=== PATIENT | female | born 1930 | race African-American/Black ===

== ENCOUNTER 2017-08-22 13:35 | Observation (INO) | payer MEDICARE, MEDICAID ==
[2017-08-22 14:59] LABS: ABS Basophils 0 10^3/ul (0-0.2); ABS Eosinophils 0.1 10^3/ul (0-0.6); ABS Lymphocytes 1.7 10^3/ul (1.0-4.8); ABS Monocytes 0.7 10^3/ul (0-0.8); ABS Neutrophils 2.3 10^3/ul (1.5-7.7); ABS Nucleated RBC 0 10^3/ul; Eosinophil % 2.9 % (0-6); Hematocrit 40 % (35-47); Hemoglobin 13.2 g/dl (12.0-16.0); Lymphocyte % 35.3 % (25-47); Mean Corpuscular HGB Conc 33 g/dl (31-36); Mean Corpuscular Hemoglobin 31 pg (27-31); Mean Corpuscular Volume 94 fL (80-97); Mean Platelet Volume 8.2 um3 (7.4-10.4); Nucleated Red Blood Cells % 0; Platelet Count 293 10^3/ul (150-450); Red Blood Count 4.21 10^6/ul (4.0-5.4); Red Cell Distribution Width 15 % (10.5-15); White Blood Count 4.8 10^3/ul (3.5-10.8)
[2017-08-22 15:05] LABS: INR 0.96 (0.77-1.02)
[2017-08-22 15:22] LABS: EGFR Non-African American 34.6 (>60)
--- NOTE | 2017-08-22 15:37 | RAD ---
INDICATION: Altered mental status COMPARISON: CT brain November 24, 2015 TECHNIQUE: Noncontrast axial source images were acquired from the skull base to the vertex. FINDINGS: Ventricles/sulci: The ventricles and cisterns are normal in size and configuration for age. Brain parenchyma: There is no focal parenchymal finding, evidence of intracranial mass, or intracranial mass effect. Intracranial hemorrhage:None. Extra-axial spaces: There are no abnormal extra axial fluid collections or evidence of extra-axial mass. Calvarium: There is no calvarial fracture or other calvarial abnormality. Scalp: There is no evidence of scalp or extracalvarial soft tissue abnormality. Paranasal sinuses/mastoid: The left maxillary antrum is incompletely evaluated. There is soft tissue density with ossification or calcification within the maxillary sinus. There is reactive change about the muñoz of the maxillary antra with sclerosis. The findings likely related to chronic sinusitis but complete evaluation with a CT of the paranasal sinuses is recommended. This could be performed as an outpatient. Other: None. IMPRESSION: NO ACUTE INTRACRANIAL FINDINGS. 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
[2017-08-22] MEDS ORDERED: Ondansetron INJ* 2 MG/ML VIAL IV PRN (18:10)
[2017-08-22] MEDS ORDERED: Acetaminophen TAB* 325 MG PO PRN (18:10)
[2017-08-22] MEDS ORDERED: NS 0.9% 1000 ML* 1,000 ML IV SCH (18:15)
[2017-08-22 18:25] LABS: Urine Appearance Cloudy; Urine Blood Negative (Negative); Urine Color Yellow; Urine Ketones Negative (Negative); Urine Protein 1+(30 mg/dL) (Negative); Urine Specific Gravity 1.012 (1.010-1.030); Urine Urobilinogen Negative (Negative)
--- NOTE | 2017-08-22 19:10 | RAD ---
INDICATION: Evaluate for infiltrate. COMPARISON: Comparison is made with a prior study from July 16, 2014. TECHNIQUE: A portable view of the chest was obtained. FINDINGS: Cardiac and mediastinal contours appear to be within normal limits. The lungs are clear. No pleural effusion is seen. IMPRESSION: NO EVIDENCE FOR ACUTE DISEASE.
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
[2017-08-22] MEDS: Heparin VIAL(*) 5000 UNITS/ML VIAL (FIVE THOUSAND) SUBCUT SCH (21:03)
[2017-08-22] MEDS: Dorzolamide 2% OPTH (NF) 10 ML BTL BOTH EYES SCH (21:03)
--- NOTE | 2017-08-22 21:04 | ED ---
Kenneth Almeida Natalie, scribed for Duarte Jacques MD on 08/22/17 at 1450 . Neurological HPI - HPI Summary HPI Summary: The pt is an 87 y/o F presenting to the ED per EMS from retirement c/o seizure -like activity at lunchtime today. When EMS arrived, the pt was unresponsive. The pt rates the pain 0/10 in severity. - History of Current Complaint Chief Complaint: EDSeizure Stated Complaint: UNRESPONSIVE Time Seen by Provider: 08/22/17 13:47 Hx Obtained From: Patient, EMS, Other: - pt was unresponsive when EMS arrived Onset/Duration: Sudden Onset Onset Severity: Moderate Current Severity: Moderate Seizure Severity: Moderate Pain Intensity: 0 Pain Scale Used: 0-10 Numeric Character: Other: - unresponsive - Allergy/Home Medications Allergies/Adverse Reactions: Allergies Allergy/AdvReac Type Severity Reaction Status Date / Time No Known Allergies Allergy Verified 11/30/15 17:39 Home Medications: Home Medications Aspirin EC TAB* [Ecotrin EC Low Dose 81 MG*] 81 mg PO QAM 08/22/17 [History Confirmed 08/22/17] Calcium Carbonate [[id number]] 500 mg PO QAM 08/22/17 [History Confirmed 08/22] Dorzolamide 2% OPTH (NF) [Trusopt 2% OPTH (NF)] 1 drop BOTH EYES BID 08/22/17 [ History Confirmed 08/22/17] Famotidine TAB 40 MG(NF) [Pepcid TAB 40 MG(NF)] 40 mg PO DAILY 08/22/17 [ History Confirmed 08/22/17] Latanoprost 0.005%* [Xalatan 0.005%*] 1 drop BOTH EYES QPM 08/22/17 [History Confirmed 08/22/17] Memantine XR CAP* [Namenda XR CAP*] 28 mg PO QAM 08/22/17 [History Confirmed ] Mirtazapine TAB* [Remeron TAB*] 30 mg PO QPM 08/22/17 [History Confirmed ] Multivitamins/Minerals TAB* [Theragran/minerals TAB*] 1 tab PO QAM 08/22/17 [ History Confirmed 08/22/17] Nortriptyline CAP* [Pamelor CAP*] 25 mg PO QPM 08/22/17 [History Confirmed 08/22] QUEtiapine TAB* [SEROquel TAB*] 25 mg PO QPM 08/22/17 [History Confirmed ] Timolol 0.5% OPTH.[place]* [Timoptic 0.5% Opth*] 1 drop BOTH EYES BID 08/22/17 [ History Confirmed 08/22/17] Verapamil SR TAB* [Calan Sr TAB*] 240 mg PO QAM 08/22/17 [History Confirmed ] PMH/Surg Hx/FS Hx/Imm Hx Cardiovascular History: Reports: Hx Hypertension Opthamlomology History: Denies: Hx Legally Blind Infectious Disease History: No Infectious Disease History: Denies: History Other Infectious Disease, Traveled Outside the [place] in Last 30 Days - Family History Known Family History: Positive: Hypertension Negative: Diabetes - Social History Alcohol Use: None Substance Use Type: Reports: None Smoking Status (MU): Never Smoked Tobacco Review of Systems Negative: Fever Neurological: Other - unresponsive All Other Systems Reviewed And Are Negative: Yes Physical Exam - Summary Physical Exam Summary: Appearance: The patient is slumped over to her right, resisting opening of eyes , with a general agitation to pain. Skin: The skin is warm and dry and skin color reflects adequate perfusion. HEENT: The head is normocephalic and atraumatic. The pupils are equal and reactive. The conjunctivae are clear and without drainage. Nares are patent and without drainage. Mouth reveals moist mucous membranes and the throat is without erythema and exudate. The external ears are intact. The ear canals are patent and without drainage. The tympanic membranes are intact. Neck: the neck is supple with full range of motion and non-tender. There are no carotid bruits. There is no neck vein distension. Respiratory: Chest is non-tender. Lungs are clear to auscultation and breath sounds are symmetrical and equal. Cardiovascular: Heart is regular rate and rhythm. There is no murmur or rub auscultated. There is no peripheral edema and pulses are symmetrical and equal. Abdomen: The abdomen is soft and non-tender. There are normal bowel sounds heard in all four quadrants and there is no organomegaly palpated. Musculoskeletal: There is no back tenderness noted. Extremities are non-tender with full range of motion. There is good capillary refill. There is no peripheral edema or calf tenderness elicited. Neurological: Patient is alert and oriented to person, place, and time. The patient has symmetrical motor strength in all four extremities. Cranial nerves are grossly intact. Deep tendon reflexes are symmetrical and equal in all four extremities. Psychiatric: The patient has an appropriate affect and does not exhibit any anxiety or depression. Triage Information Reviewed: Yes Vital Signs On Initial Exam: Initial Vitals Temp Pulse Resp BP Pulse Ox 97.0 F 88 16 119/86 95 08/22/17 14:21 08/22/17 14:21 08/22/17 14:21 08/22/17 14:21 08/22/17 14:21 Vital Signs Reviewed: Yes Diagnostics - Vital Signs Vital Signs Temp Pulse Resp BP Pulse Ox 08/22/17 14:21 97.0 F 88 16 119/86 95 - Laboratory Lab Results: Lab Results 08/22/17 08/22/17 08/22/17 Range/Units 14:30 14:30 14:30 WBC 4.8 (3.5-10.8) 10^3/ul RBC 4.21 (4.0-5.4) 10^6/ul Hgb 13.2 (12.0-16.0) g/dl Hct 40 (35-47) % MCV 94 (80-97) fL MCH 31 (27-31) pg MCHC 33 (31-36) g/dl RDW 15 (10.5-15) % Plt Count 293 (150-450) 10^3/ul MPV 8.2 (7.4-10.4) um3 Neut % (Auto) 46.8 (38-83) % Lymph % (Auto) 35.3 (25-47) % [place] % (Auto) 14.0 H (0-7) % Eos % (Auto) 2.9 (0-6) % Baso % (Auto) 1.0 (0-2) % Absolute Neuts (auto) 2.3 (1.5-7.7) 10^3/ul Absolute Lymphs (auto) 1.7 (1.0-4.8) 10^3/ul Absolute Monos (auto) 0.7 (0-0.8) 10^3/ul Absolute Eos (auto) 0.1 (0-0.6) 10^3/ul Absolute Basos (auto) 0 (0-0.2) 10^3/ul Absolute Nucleated RBC 0 10^3/ul Nucleated RBC % 0 INR (Anticoag Therapy) 0.96 (0.77-1.02) Sodium 140 (139-145) mmol/L Potassium TNP Chloride 103 (101-111) mmol/L Carbon Dioxide 29 (22-32) mmol/L Anion Gap 8 (2-11) mmol/L BUN 16 (6-24) mg/dL Creatinine 1.43 H (0.51-0.95) mg/dL Est GFR ( Amer) 44.5 (>60) Est GFR (Non-Af Amer) 34.6 (>60) BUN/Creatinine Ratio 11.2 (8-20) Glucose 109 H (70-100) mg/dL Lactic Acid (0.5-2.0) mmol/L Calcium 10.2 (8.6-10.3) mg/dL Total Bilirubin 0.30 (0.2-1.0) mg/dL AST TNP ALT 29 (7-52) U/L Alkaline Phosphatase 82 (34-104) U/L Troponin I 0.01 (<0.04) ng/mL Total Protein 7.7 (6.4-8.9) g/dL Albumin 3.9 (3.2-5.2) g/dL Globulin 3.8 (2-4) g/dL Albumin/Globulin Ratio 1.0 (1-3) TSH 3.31 (0.34-5.60) mcIU/mL 08/22/17 08/22/17 Range/Units 14:30 15:40 WBC (3.5-10.8) 10^3/ul RBC (4.0-5.4) 10^6/ul Hgb (12.0-16.0) g/dl Hct (35-47) % MCV (80-97) fL MCH (27-31) pg MCHC (31-36) g/dl RDW (10.5-15) % Plt Count (150-450) 10^3/ul MPV (7.4-10.4) um3 Neut % (Auto) (38-83) % Lymph % (Auto) (25-47) % [place] % (Auto) (0-7) % Eos % (Auto) (0-6) % Baso % (Auto) (0-2) % Absolute Neuts (auto) (1.5-7.7) 10^3/ul Absolute Lymphs (auto) (1.0-4.8) 10^3/ul Absolute Monos (auto) (0-0.8) 10^3/ul Absolute Eos (auto) (0-0.6) 10^3/ul Absolute Basos (auto) (0-0.2) 10^3/ul Absolute Nucleated RBC 10^3/ul Nucleated RBC % INR (Anticoag Therapy) (0.77-1.02) Sodium (139-145) mmol/L Potassium 3.9 Chloride (101-111) mmol/L Carbon Dioxide (22-32) mmol/L Anion Gap (2-11) mmol/L BUN (6-24) mg/dL Creatinine (0.51-0.95) mg/dL Est GFR ( Amer) (>60) Est GFR (Non-Af Amer) (>60) BUN/Creatinine Ratio (8-20) Glucose (70-100) mg/dL Lactic Acid 1.8 (0.5-2.0) mmol/L Calcium (8.6-10.3) mg/dL Total Bilirubin (0.2-1.0) mg/dL AST 25 ALT (7-52) U/L Alkaline Phosphatase (34-104) U/L Troponin I (<0.04) ng/mL Total Protein (6.4-8.9) g/dL Albumin (3.2-5.2) g/dL Globulin (2-4) g/dL Albumin/Globulin Ratio (1-3) TSH (0.34-5.60) mcIU/mL Result Diagrams: 08/22/17 14:30 08/22/17 15:40 Lab Statement: Any lab studies that have been ordered have been reviewed, and results considered in the medical decision making process. - Radiology CXR Xray Interpretation: No Acute Changes - No evidence for acute disease. ED physician has reviewed this report. - CT Brain CT CT Interpretation: No Acute Changes - No acute intracranial findings. Suspect chronic left maxillary antral sinusitis. ED physician has reviewed this report. CT Interpretation Completed By: Radiologist - EKG 13:59 Cardiac Rate: NL EKG Rhythm: Sinus Rhythm - 92 BPM Course/Dx - Course Course Of Treatment: Ms. Sánchez has recently been moved to the [place] from [place] by family. She was apparently eating lunch today and had a seizure. I couldn't get a good description from an eyewitness. EMS found her unresponsive and she was poorly responsive on arrival here. She gradually improved here and the family felt she was almost back to normal. At baseline she has severe dementia. Her W/U was negative. I spoke with the family about how aggressive they wanted to be and they wanted to have her admitted and W/U'd. - Diagnoses Provider Diagnoses: Seizure Discharge - Sign-Out/Discharge Documenting (check all that apply): Discharge - Discharge Plan Condition: Stable Disposition: ADMITTED TO [facility] - Billing Disposition and Condition Condition: STABLE Disposition: [facility]P-[facility] [place] The documentation as recorded by the Kenneth acosta Natalie accurately reflects the service I personally performed and the decisions made by me, Duarte Jacques MD.
[2017-08-22] MEDS: Timolol 0.5% OPTH.SOL* BTL BOTH EYES SCH (21:43)
[2017-08-23 05:27] LABS: ABS Basophils 0.1 10^3/ul (0-0.2); ABS Eosinophils 0.1 10^3/ul (0-0.6); ABS Lymphocytes 1.8 10^3/ul (1.0-4.8); ABS Monocytes 0.6 10^3/ul (0-0.8); ABS Neutrophils 2.1 10^3/ul (1.5-7.7); ABS Nucleated RBC 0 10^3/ul; Eosinophil % 2.9 % (0-6); Hematocrit 39 % (35-47); Hemoglobin 12.8 g/dl (12.0-16.0); Lymphocyte % 37.8 % (25-47); Mean Corpuscular HGB Conc 33 g/dl (31-36); Mean Corpuscular Hemoglobin 31 pg (27-31); Mean Corpuscular Volume 95 fL (80-97); Mean Platelet Volume 7.9 um3 (7.4-10.4); Nucleated Red Blood Cells % 0.1; Platelet Count 253 10^3/ul (150-450); Red Blood Count 4.11 10^6/ul (4.0-5.4); Red Cell Distribution Width 15 % (10.5-15); White Blood Count 4.8 10^3/ul (3.5-10.8)
[2017-08-23] MEDS: Heparin VIAL(*) 5000 UNITS/ML VIAL (FIVE THOUSAND) SUBCUT SCH (05:40)
[2017-08-23 05:46] LABS: EGFR Non-African American 43.2 (>60)
[2017-08-23] MEDS ORDERED: Famotidine TAB* 20 MG PO SCH (09:00)
[2017-08-23] MEDS ORDERED: Aspirin EC TAB* 81 MG TAB.EC PO SCH (09:00)
[2017-08-23] MEDS ORDERED: Verapamil SR TAB* 240 MG PO SCH (09:00)
[2017-08-23] MEDS ORDERED: Memantine XR CAP* 28 MG CAP.XR PO SCH (09:00)
[2017-08-23] MEDS ORDERED: Calcium Carbonate CHEW TAB* 500 MG (TUMS) PO SCH (09:00)
[2017-08-23] MEDS ORDERED: Multivitamins/Minerals TAB PO SCH (09:00)
[2017-08-23] MEDS: Timolol 0.5% OPTH.SOL* BTL BOTH EYES SCH (09:34)
[2017-08-23] MEDS: Dorzolamide 2% OPTH (NF) 10 ML BTL BOTH EYES SCH (09:36)
--- NOTE | 2017-08-23 10:14 | DCNOTE ---
Subjective Date of Service: 08/23/17 Interval History: Patient not able to make her needs known. DIL at bedside states patient is back to her baseline. Objective Active Medications: Acetaminophen (Tylenol Tab*) 650 mg PO Q4H PRN PRN Reason: FEVER/PAIN Aspirin (Aspirin Ec Tab*) 81 mg PO QAM [facility] Last Admin: 08/23/17 09:32 Dose: 81 mg Atorvastatin Calcium (Lipitor*) 5 mg PO QPM [facility] PRN Reason: Protocol Calcium Carbonate (Tums*) 500 mg PO QAM [facility] Last Admin: 08/23/17 09:30 Dose: 500 mg Dorzolamide HCl (Trusopt 2% Opth (Nf)) 1 drop BOTH EYES BID [facility] PRN Reason: Protocol Last Admin: 08/23/17 09:36 Dose: Not Given Famotidine (Pepcid Tab*) 40 mg PO DAILY [facility] Last Admin: 08/23/17 09:31 Dose: 40 mg Heparin Sodium (Porcine) (Heparin Vial(*)) 5,000 units SUBCUT Q8HR [facility] Last Admin: 08/23/17 05:40 Dose: 5,000 units Latanoprost (Xalatan 0.005%*) 1 drop BOTH EYES QPM [facility] Memantine (Namenda Xr Cap*) 28 mg PO QAM [facility] Last Admin: 08/23/17 09:33 Dose: 28 mg Mirtazapine (Remeron Tab*) 15 mg PO QPM [facility] Multivitamins/Minerals (Theragran/Minerals Tab*) 1 tab PO QAM [facility] Last Admin: 08/23/17 09:32 Dose: 1 tab Ondansetron HCl (Zofran Inj*) 4 mg IV Q4H PRN PRN Reason: NAUSEA/VOMITING Quetiapine Fumarate (Seroquel Tab*) 25 mg PO QPM [facility] Timolol Maleate (Timoptic 0.5% Opth*) 1 drop BOTH EYES BID [facility] Last Admin: 08/23/17 09:34 Dose: 1 drop Vital Signs - 8 hr 08/23/17 08/23/17 03:39 07:22 Temperature 97.3 F Pulse Rate 84 Respiratory 16 18 Rate Blood Pressure 129/63 (mmHg) O2 Sat by Pulse 100 Oximetry Oxygen Devices in Use Now: None Appearance: Alert, partly up in bed. She ignores me and her dil. Motor restlessness. Neutral affect. Eyes: No Scleral Icterus Respiratory: Symmetrical Chest Expansion and Respiratory Effort, Clear to Auscultation, Clear to Percussion Cardiovascular: NL Sounds; No Murmurs; No JVD, RRR, No Edema, - Extremities: No Edema, No Clubbing, Cyanosis, - Skin: No Rash or Ulcers, No Nodules or Sclerosis, - Neurological: NL Sensation - Non-verbal, poor attention span, no sign of comrehension. No tremor. Result Diagrams: 08/23/17 05:12 08/23/17 05:12 Additional Lab and Data: Lab Results 08/22/17 08/22/17 08/22/17 Range/Units 14:30 14:30 14:30 WBC 4.8 (3.5-10.8) 10^3/ul RBC 4.21 (4.0-5.4) 10^6/ul Hgb 13.2 (12.0-16.0) g/dl Hct 40 (35-47) % MCV 94 (80-97) fL MCH 31 (27-31) pg MCHC 33 (31-36) g/dl RDW 15 (10.5-15) % Plt Count 293 (150-450) 10^3/ul MPV 8.2 (7.4-10.4) um3 Neut % (Auto) 46.8 (38-83) % Lymph % (Auto) 35.3 (25-47) % [place] % (Auto) 14.0 H (0-7) % Eos % (Auto) 2.9 (0-6) % Baso % (Auto) 1.0 (0-2) % Absolute Neuts (auto) 2.3 (1.5-7.7) 10^3/ul Absolute Lymphs (auto) 1.7 (1.0-4.8) 10^3/ul Absolute Monos (auto) 0.7 (0-0.8) 10^3/ul Absolute Eos (auto) 0.1 (0-0.6) 10^3/ul Absolute Basos (auto) 0 (0-0.2) 10^3/ul Absolute Nucleated RBC 0 10^3/ul Nucleated RBC % 0 INR (Anticoag Therapy) 0.96 (0.77-1.02) Sodium 140 (139-145) mmol/L Potassium TNP Chloride 103 (101-111) mmol/L Carbon Dioxide 29 (22-32) mmol/L Anion Gap 8 (2-11) mmol/L BUN 16 (6-24) mg/dL Creatinine 1.43 H (0.51-0.95) mg/dL Est GFR ( Amer) 44.5 (>60) Est GFR (Non-Af Amer) 34.6 (>60) BUN/Creatinine Ratio 11.2 (8-20) Glucose 109 H (70-100) mg/dL Lactic Acid (0.5-2.0) mmol/L Calcium 10.2 (8.6-10.3) mg/dL Total Bilirubin 0.30 (0.2-1.0) mg/dL AST TNP ALT 29 (7-52) U/L Alkaline Phosphatase 82 (34-104) U/L Troponin I 0.01 (<0.04) ng/mL Total Protein 7.7 (6.4-8.9) g/dL Albumin 3.9 (3.2-5.2) g/dL Globulin 3.8 (2-4) g/dL Albumin/Globulin Ratio 1.0 (1-3) TSH 3.31 (0.34-5.60) mcIU/mL 08/22/17 08/22/17 Range/Units 14:30 15:40 WBC (3.5-10.8) 10^3/ul RBC (4.0-5.4) 10^6/ul Hgb (12.0-16.0) g/dl Hct (35-47) % MCV (80-97) fL MCH (27-31) pg MCHC (31-36) g/dl RDW (10.5-15) % Plt Count (150-450) 10^3/ul MPV (7.4-10.4) um3 Neut % (Auto) (38-83) % Lymph % (Auto) (25-47) % [place] % (Auto) (0-7) % Eos % (Auto) (0-6) % Baso % (Auto) (0-2) % Absolute Neuts (auto) (1.5-7.7) 10^3/ul Absolute Lymphs (auto) (1.0-4.8) 10^3/ul Absolute Monos (auto) (0-0.8) 10^3/ul Absolute Eos (auto) (0-0.6) 10^3/ul Absolute Basos (auto) (0-0.2) 10^3/ul Absolute Nucleated RBC 10^3/ul Nucleated RBC % INR (Anticoag Therapy) (0.77-1.02) Sodium (139-145) mmol/L Potassium 3.9 Chloride (101-111) mmol/L Carbon Dioxide (22-32) mmol/L Anion Gap (2-11) mmol/L BUN (6-24) mg/dL Creatinine (0.51-0.95) mg/dL Est GFR ( Amer) (>60) Est GFR (Non-Af Amer) (>60) BUN/Creatinine Ratio (8-20) Glucose (70-100) mg/dL Lactic Acid 1.8 (0.5-2.0) mmol/L Calcium (8.6-10.3) mg/dL Total Bilirubin (0.2-1.0) mg/dL AST 25 ALT (7-52) U/L Alkaline Phosphatase (34-104) U/L Troponin I (<0.04) ng/mL Total Protein (6.4-8.9) g/dL Albumin (3.2-5.2) g/dL Globulin (2-4) g/dL Albumin/Globulin Ratio (1-3) TSH (0.34-5.60) mcIU/mL Microbiology and Other Data: Microbiology 08/22/17 20:20 Nasal Screen MRSA (PCR)(SHAYY) - Final Nasal Mrsa Not Detected Assess/Plan/Problems-Billing Assessment: - Patient Problems (1) Spell of altered consciousness Current Visit: Yes Status: Acute Code(s): R40.4 - TRANSIENT ALTERATION OF AWARENESS SNOMED Code(s): 6590416 Comment: Shaking episode with LOC at SNF, could be seizure. If EEG not too abnormal would hold off on AED. If seizure focus seen, may be helpful to start AED. I discussed this with the dil. I am reducing mirtazapine and quetiapine doses, stopping nortriptyline. (2) Dementia Current Visit: Yes Status: Acute Code(s): F03.90 - UNSPECIFIED DEMENTIA WITHOUT BEHAVIORAL DISTURBANCE SNOMED Code(s): 59206216 Comment: Advanced dementia. Continue memantine XR. (3) HTN (hypertension) Current Visit: Yes Status: Acute Code(s): I10 - ESSENTIAL (PRIMARY) HYPERTENSION SNOMED Code(s): 91198292 Comment: Hold verapamil. BP 121/44 08/23 without it.
[2017-08-23 12:44] VITALS: BP 122/84
--- NOTE | 2017-08-23 13:50 | TRS ---
CC: Dr. Sandoval * DATE OF ADMISSION: 08/22/2017. DATE OF TRANSFER: 08/23/2017. HISTORY OF PRESENT ILLNESS: This 87-year-old woman presented with possible seizure. Her [id number] had visited that morning and had left. The patient was doing was doing as well as ever, at her baseline. Sometime later she was called back. The patient loss consciousness and had some shaking. When the [id number] arrived, the patient was on the floor not moving. The daughter-in- law thinks the patient was unresponsive for a few hours. She had never had a similar episode before. On the day of discharge, the patient was back at her baseline. The patient herself has advanced dementia and cannot give any history at all. She is essentially nonverbal. The patient was evaluated her with a CT scan of the brain, a chest x-ray, and routine lab tests. She had an EEG on the day of discharge. The report of this is not available at the time of this dictation, but should be available later this afternoon. I am cutting down her Mirtazapine and Quetiapine doses and stopping her Nortriptyline, which was already at a very low dose. If the EEG shows seizure- like foci, I will consult with the neurologist about possibly starting an antiepileptic drug. If there is no indication suspicious for seizures on the EEG after a single episode, it may be best to simply observe the patient. FINAL DIAGNOSES: 1. Possible seizure. 2. Dementia. 3. Hypertension. DISCHARGE MEDICATIONS: 1. Acetaminophen 650 mg every 4 hours prn. 2. Mirtazapine 15 mg at bedtime. 3. Quetiapine 12.5 mg at bedtime. 4. Pravastatin 20 mg at bedtime. 5. Timolol 0.5% both eyes b.i.d. 6. Famotidine 40 mg daily. 7. Calcium Carbonate 500 mg daily. 8. Latanoprost 0.005% one drop both eyes every evening. 9. Dorzolamide one drop both eyes 2% b.i.d. 10. Aspirin 81 mg daily. 11. Verapamil SR 240 mg daily. 12. Multivitamin with minerals one tab daily. 13. Memantine XR 28 mg daily. [id number]/[facility] #: [id number] [facility]
--- NOTE | 2017-08-23 15:39 | EEG ---
ELECTROENCEPHALOGRAPHY: DATE OF PROCEDURE: 08/1917 PATIENT OF: Dr. Abdul. HISTORY: This is an 87-year-old woman being evaluated for decreased interactivity with some shaking and loss of consciousness. The patient has Alzheimer's disease. MEDICATIONS: Include: 1. Aspirin. 2. Atorvastatin. 3. Dorzolamide. 4. Famotidine. 5. Amantadine. 6. Mirtazapine. 7. Nortriptyline. 8. Zofran. 9. Timolol. INTERPRETATION: With the patient awake, background cerebral activity consists of moderate amplitude diffuse 6 to 7 Hz rhythm, Prominent muscle movement artifact are noted throughout this tracing. The patient never falls asleep. IMPRESSION: This awake EEG is abnormal because of slowing of background consistent with an encephalopathy, but nonspecific as to etiology. [id number]/[facility] #: [id number] MTDD
[2017-08-23] MEDS ORDERED: Atorvastatin* 10 MG TAB PO SCH (18:00)
[2017-08-23] MEDS ORDERED: Mirtazapine TAB* 15 MG PO SCH ×2 (18:00→21:00)
[2017-08-23] MEDS ORDERED: Latanoprost 0.005%* 2.5 ml BTL BOTH EYES SCH (18:00)
[2017-08-23] MEDS ORDERED: QUEtiapine TAB* 25 MG PO SCH ×2 (18:00)
[2017-08-23] MEDS ORDERED: Nortriptyline CAP* 25 MG PO SCH (18:00)
== END 2017-08-23 14:33 ==
LOC: ED 13:35 → MEDTELE 18:10
PROVIDERS: ADMIT Internal Medicine; ATTEND Internal Medicine
DX: R40.4 Transient alteration of awareness (principal); G30.9 Alzheimer's disease, unspecified; E87.5 Hyperkalemia; I12.9 Hypertensive chronic kidney disease with stage 1 through stage 4 chronic kidney disease, or unspecified chronic kidney disease; N18.9 Chronic kidney disease, unspecified; H40.9 Unspecified glaucoma; F02.80 Dementia in other diseases classified elsewhere, unspecified severity, without behavioral disturbance, psychotic disturbance, mood disturbance, and anxiety; Z79.899 Other long term (current) drug therapy; I51.7 Cardiomegaly
CPT/HCPCS: 36415; 70450; 71045; 80048; 80053; 81003; 81015; 83605; 84443; 84484; 85025; 85610; 87077; 87086; 87186; 87641; 93005; 95816; 96372; 99284; A9270-GY; G0378; J1644

== ENCOUNTER 2018-09-25 13:37 | Emergency (ER) | payer MEDICARE, MEDICAID ==
--- NOTE | 2018-09-25 14:26 | ED ---
Adult Trauma - HPI Summary HPI Summary: 88-year-old female presents with fall today. Her daughter states that she's been leaning towards the left for the past couple days. she has had this before. she has a history of dementia so history by the patient is limited. She denies any pain. No chest pain or shortness of breath. She ended up falling on the left side of head. not on blood thinners. no loss conscious. No nausea vomiting. Is acting normal per caregiver. No other injury noted. Normally ambulates on her own. she is in a dementia unit at [facility]. - History of Current Complaint Chief Complaint: EDFall Stated Complaint: FALL PER EMS Time Seen by Provider: 09/25/18 14:01 Pain Intensity: 0 - Additional Pertinent History Primary Care Physician: ANGEL - Allergy/Home Medications Allergies/Adverse Reactions: Allergies Allergy/AdvReac Type Severity Reaction Status Date / Time No Known Allergies Allergy Verified 11/30/15 17:39 Home Medications: Home Medications Acetaminophen TAB* [Tylenol TAB*] 650 mg PO Q6H PRN 09/25/18 [History Confirmed 09/25/18] Lactose-Reduced Food [Ensure Liquid] 90 ml PO DAILY 09/25/18 [History Confirmed 09/25/18] Melatonin (NF) 3 mg PO 1900 09/25/18 [History Confirmed 09/25/18] Mineral Oil/Petrolatum,White [Akwa Tears] 1 oin OPHTHALMIC BID 09/25/18 [ History Confirmed 09/25/18] OLANzapine TAB* [Zyprexa 2.5 MG TAB*] 2.5 mg PO 0900,2100 09/25/18 [History Confirmed 09/25/18] Sennosides/Docusate Sodium [Docusate Sodium-Senna Tablet] 2 tab PO QAM 09/25/18 [History Confirmed 09/25/18] Sertraline* [Zoloft*] 25 mg PO DAILY 09/25/18 [History Confirmed 09/25/18] Verapamil TAB* [Calan TAB*] 80 mg PO BID 09/25/18 [History Confirmed 09/25/18] PMH/Surg Hx/FS Hx/Imm Hx Endocrine/Hematology History: Denies: Hx Anticoagulant Therapy Cardiovascular History: Reports: Hx Hypercholesterolemia, Hx Hypertension Sensory History: Reports: Hx Contacts or Glasses, Hx Glaucoma Denies: Hx Legally Blind, Hx Deafness, Hx Hearing Aid, Hx Hearing Problem Opthamlomology History: Reports: Hx Contacts or Glasses, Hx Glaucoma Denies: Hx Legally Blind Neurological History: Reports: Hx Dementia, Hx Seizures - possible seizure, yet to be ruled out Denies: Hx Transient Ischemic Attacks (TIA) Infectious Disease History: No Infectious Disease History: Denies: History Other Infectious Disease, Traveled Outside the [place] in Last 30 Days - Family History Known Family History: Positive: Hypertension Negative: Diabetes - Social History Alcohol Use: None Substance Use Type: Reports: None Smoking Status (MU): Never Smoked Tobacco Type: Smokeless Tobacco Review of Systems Negative: Fever Negative: Chest Pain Negative: Shortness Of Breath Neurological: Other - contusion to head All Other Systems Reviewed And Are Negative: Yes Physical Exam Triage Information Reviewed: Yes Vital Signs On Initial Exam: Initial Vitals Temp Pulse Resp BP Pulse Ox 98.4 F 70 16 193/98 100 09/25/18 13:40 09/25/18 13:40 09/25/18 13:40 09/25/18 13:40 09/25/18 13:40 Vital Signs Reviewed: Yes Appearance: Positive: Well-Appearing Skin: Positive: Warm, Dry, Other - contusion to left side of head Head/Face: Positive: Normal Head/Face Inspection Eyes: Positive: Normal, EOMI, CATRACHITO, Conjunctiva Clear ENT: Positive: Normal ENT inspection, Pharynx normal, TMs normal Respiratory/Lung Sounds: Positive: Clear to Auscultation, Breath Sounds Present Cardiovascular: Positive: Normal, RRR Abdomen Description: Positive: Nontender, Soft Bowel Sounds: Positive: Present Musculoskeletal: Positive: Normal Neurological: Positive: Sensory/Motor Intact, CN Intact II-III. Negative: Alert , Oriented to Person Place, Time Psychiatric: Positive: Normal - Tamra Coma Scale Best Eye Response: 4 - Spontaneous Best Motor Response: 6 - Obeys Commands Best Verbal Response: 4 - Confused Coma Scale Total: 14 Diagnostics - Vital Signs Vital Signs Temp Pulse Resp BP Pulse Ox 09/25/18 13:43 70 100 09/25/18 13:42 67 193/98 99 09/25/18 13:40 98.4 F 70 16 193/98 100 - Laboratory Result Diagrams: 09/25/18 15:41 09/25/18 15:41 Lab Statement: Any lab studies that have been ordered have been reviewed, and results considered in the medical decision making process. - CT brain CT Interpretation Completed By: Radiologist Summary of CT Findings: IMPRESSION: Atrophy. Chronic ischemic White matter change. No intracranial mass or. hemorrhage is noted. - EKG No standard instances Cardiac Rate: NL EKG Rhythm: Sinus Rhythm EKG Comparison: No Significant Change Summary of EKG Findings: sinus rhythm, PVCs Re-Evaluation - Re-Evaluation First Eval Comment: feels comfortable with discharge Adult Trauma Course/Dx - Course Course Of Treatment: 88-year-old female presents with fall today. Her daughter states that she's been leaning towards the left for the past couple days. she has had this before. she has a history of dementia so history by the patient is limited. She denies any pain. No chest pain or shortness of breath. She ended up falling on the left side of head. not on blood thinners. no loss conscious. No nausea vomiting. Is acting normal per caregiver. No other injury noted. Normally ambulates on her own. she is in a dementia unit at [facility]. On exam is able to follow commands. Is not alert and oriented. Is at her baseline mental status. CT brain and neck normal. lab work wnl. home care giver feels comfortable taking the patient back home. Told to follow up primary or neurology about gait disturbances. Patient caregiver understands agrees with plan. - Diagnoses Differential Diagnosis/HQI/PQRI: Positive: Abrasion(s), Contusion(s), Fracture Provider Diagnoses: Head injury, Fall Discharge - Sign-Out/Discharge Documenting (check all that apply): Patient Departure Patient Received Moderate/Deep Sedation with Procedure: No - Discharge Plan Condition: Good Disposition: HOME Patient Education Materials: Head Injury (ED) Referrals: Patrice Sandoval MD [Primary Care Provider] - Dexter Olvera MD [Medical Doctor] - Additional Instructions: follow up with neurology or primary within [address] ice on the area Give tyenlol as needed for pain Return to ED if develop any new or worsening symptoms - Billing Disposition and Condition Condition: GOOD Disposition: Home
[2018-09-25 14:34] LABS: Urine Appearance Clear; Urine Bilirubin Negative (Negative); Urine Blood Negative (Negative); Urine Color Yellow; Urine Glucose Negative (Negative); Urine Ketones Negative (Negative); Urine Nitrite Negative (Negative); Urine Protein Negative (Negative); Urine Specific Gravity 1.017 (1.010-1.030); Urine Urobilinogen Negative (Negative)
[2018-09-25 15:54] LABS: ABS Basophils 0.1 10^3/ul (0-0.2); ABS Eosinophils 0.2 10^3/ul (0-0.6); ABS Lymphocytes 1.6 10^3/ul (1.0-4.8); ABS Monocytes 0.6 10^3/ul (0-0.8); ABS Neutrophils 2.8 10^3/ul (1.5-7.7); Hematocrit 34 % (35-47); Hemoglobin 11.4 g/dL (12.0-16.0); Lymphocyte % 31.4 %; Mean Corpuscular HGB Conc 33 g/dL (31-36); Mean Corpuscular Hemoglobin 31 pg (27-31); Mean Corpuscular Volume 94 fL (80-97); Mean Platelet Volume 7.5 fL (7.4-10.4); Platelet Count 250 10^3/uL (150-450); Red Blood Count 3.62 10^6 /uL (3.70-4.87); Red Cell Distribution Width 16 % (10.5-15); White Blood Count 5.2 10^3/uL (3.5-10.8)
[2018-09-25 16:03] LABS: INR 1.01 (0.82-1.09)
[2018-09-25 16:14] LABS: Albumin 3.9 g/dL (3.2-5.2); BUN/Creatinine Ratio 24.7 (8-20); C Reactive Protein 1.33 mg/L (<8.01); EGFR African American 68.7 (>60); EGFR Non-African American 56.8 (>60); Globulin 3.8 g/dL (2-4); Potassium 4.2 mmol/L (3.5-5.0); Total Bilirubin 0.2 mg/dL (0.2-1.0); Total Protein 7.7 g/dL (6.4-8.9)
[2018-09-25 16:42] VITALS: BP 152/89
== END 2018-09-25 16:41 | disposition home or self-care (01) ==
LOC: ED 13:37
DX: S09.90XA Unspecified injury of head, initial encounter (principal); F03.90 Unspecified dementia, unspecified severity, without behavioral disturbance, psychotic disturbance, mood disturbance, and anxiety; E78.00 Pure hypercholesterolemia, unspecified; I10 Essential (primary) hypertension; Z79.899 Other long term (current) drug therapy; W19.XXXA Unspecified fall, initial encounter; M50.30 Other cervical disc degeneration, unspecified cervical region; G31.9 Degenerative disease of nervous system, unspecified
CPT/HCPCS: 36415; 70450; 72125; 80053; 81003; 83605; 85025; 85610; 86140; 93005; 99283

== ENCOUNTER 2018-10-07 17:50 | Inpatient (IN) | payer MEDICARE, MEDICAID ==
[2018-10-07] MEDS ORDERED: NS 0.9% 1000 ML** 1,000 ML IV ONE (18:18)
--- NOTE | 2018-10-07 18:27 | ED ---
Altered Mental Status - HPI Summary HPI Summary: LEVEL 5 CAVEAT: HPI LIMITED DUE TO PATIENT CONDITION, AMS An 88 y/o F brought in by ambulance presents to ED with AMS. Per daughter in law : patient fell and hit her head 9 days ago and was evaluated at [facility]. Patient has not been eating or drinking for the past 4 days, she's been pocketing her food and not swallowing. Patient also has recent dx: UTI. - History Of Current Complaint Chief Complaint: EDAltMentalStatus Stated Complaint: DEHYDRATION PER EMS Time Seen by Provider: 10/07/18 18:15 Hx Obtained From: Family/[employer] Dies - daughter in law Hx From Patient Unobtainable Due To: Altered Mental Status Timing: Constant - Allergies/Home Medications Allergies/Adverse Reactions: Allergies Allergy/AdvReac Type Severity Reaction Status Date / Time No Known Allergies Allergy Verified 11/30/15 17:39 Home Medications: Home Medications Mineral Oil/Petrolatum,White [Akwa Tears] 1 oin OPHTHALMIC BID 10/07/18 [ History Confirmed 10/07/18] cefTRIAXone VIAL(*) [Rocephin VIAL(*)] 1 gm IM DAILY 10/07/18 [History Confirmed 10/07/18] PMH/Surg Hx/FS Hx/Imm Hx Previously Healthy: No Endocrine/Hematology History: Denies: Hx Anticoagulant Therapy Cardiovascular History: Reports: Hx Hypercholesterolemia, Hx Hypertension Sensory History: Reports: Hx Contacts or Glasses, Hx Glaucoma Denies: Hx Legally Blind, Hx Deafness, Hx Hearing Aid, Hx Hearing Problem Opthamlomology History: Reports: Hx Contacts or Glasses, Hx Glaucoma Denies: Hx Legally Blind Neurological History: Reports: Hx Dementia, Hx Seizures - possible seizure, yet to be ruled out Denies: Hx Transient Ischemic Attacks (TIA) Infectious Disease History: Unable to Obtain/Confirm Infectious Disease History: Denies: History Other Infectious Disease, Traveled Outside the [place] in Last 30 Days - Family History Known Family History: Positive: Hypertension Negative: Diabetes - Social History Lives: At [facility] Alcohol Use: None Substance Use Type: Reports: None Smoking Status (MU): Never Smoked Tobacco Type: Smokeless Tobacco Review of Systems - ROS Summary Review of Systems Summary: LEVEL 5 CAVEAT: ROS LIMITED DUE TO PATIENT CONDITION, AMS Positive: Other - pos: AMS All Other Systems Reviewed And Are Negative: No Physical Exam - Summary Physical Exam Summary: LEVEL 5 CAVEAT: PE LIMITED DUE TO PT CONDITION, AMS Appearance: Lying in bed comfortable, not in obvious distress Eyes: sclera anicteric, no conjunctival pallor Neck: deferred Respiratory: No signs of respiratory distress Cardiovascular: Appears well perfused Abdomen: deferred Musculoskeletal: Moving all 4 extremities without obvious discomfort Neurological: Not responding to questions Triage Information Reviewed: Yes Vital Signs On Initial Exam: Initial Vitals Temp Pulse Resp BP Pulse Ox 98.8 F 89 18 0/0 98 10/07/18 18:05 10/07/18 18:05 10/07/18 18:05 10/07/18 18:05 10/07/18 18:05 Vital Signs Reviewed: Yes Completion Of Physical Exam Limited Due To: Altered Mental Status Diagnostics - Vital Signs Vital Signs Temp Pulse Resp BP Pulse Ox 10/07/18 18:05 98.8 F 89 18 0/0 98 - Laboratory Result Diagrams: 10/08/18 05:33 10/08/18 02:05 Lab Statement: Any lab studies that have been ordered have been reviewed, and results considered in the medical decision making process. - EKG 1857 Cardiac Rate: Tachycardia - 109 BPM EKG Rhythm: Sinus Tachycardia EKG Comparison: No Significant Change - Similar to EKG taken on 09/25/2018 Summary of EKG Findings: P waves, QRS complex, and T waves are within normal limits, T waves and intervals are normal, no ischemic changes Altered Mental Statu Course/Dx - Course Course Of Treatment: Patient is an 88 y/o F presenting with AMS. Per daughter in law: patient evaluated at [facility] on 10/02 after fall. Patient has not been eating or drinking for the past 4 days. Patient also has recent dx: UTI. - Diagnoses Provider Diagnoses: Hypernatremia, UTI (urinary tract infection), Dehydration - Provider Notifications Discussed Care Of Patient With: Sheree Dye - hospitalist Time Discussed With Above Provider: 19:40 Instructed by Provider To: Other - I discussed the patients case with Dr. Dye , and she accepts the patient at this time. Discharge - Sign-Out/Discharge Documenting (check all that apply): Patient Departure Patient Received Moderate/Deep Sedation with Procedure: No - Discharge Plan Condition: Guarded Disposition: ADMITTED TO [facility] - Billing Disposition and Condition Condition: GUARDED Disposition: Admitted to [facility] - Attestation Statements Document Initiated by Scribe: Yes Documenting Scribe: Maxine Dickinson Provider For Whom Karla is Documenting (Include Credential): Dr. Duarte Ayala MD Scribe Attestation: I, Maxine Dickinson, scribed for Dr. Duarte Ayala MD on 10/08/18 at 0554. Scribe Documentation Reviewed: Yes Provider Attestation: The documentation as recorded by the karla, Maxine Dickinson accurately reflects the service I personally performed and the decisions made by me, Dr. Duarte Ayala MD Status of Scribe Document: Viewed
[2018-10-07 19:00] LABS: ABS Basophils 0.1 10^3/ul (0-0.2); ABS Eosinophils 0.3 10^3/ul (0-0.6); ABS Lymphocytes 1.4 10^3/ul (1.0-4.8); ABS Neutrophils 5.9 10^3/ul (1.5-7.7); Eosinophil % 2.9 %; Hematocrit 37 % (35-47); Lymphocyte % 16.4 %; Mean Corpuscular HGB Conc 32 g/dL (31-36); Mean Corpuscular Hemoglobin 31 pg (27-31); Mean Corpuscular Volume 95 fL (80-97); Nucleated Red Blood Cells % 0.1; Platelet Count 581 10^3/uL (150-450); Red Blood Count 3.94 10^6 /uL (3.70-4.87); Red Cell Distribution Width 15 % (10.5-15); White Blood Count 8.7 10^3/uL (3.5-10.8)
[2018-10-07 19:17] LABS: Albumin 3.7 g/dL (3.2-5.2); Albumin/Globulin Ratio 0.7 (1-3); BUN/Creatinine Ratio 44.6 (8-20); Calcium 11.5 mg/dL (8.6-10.3); EGFR African American 62.4 (>60); EGFR Non-African American 51.6 (>60); Globulin 5.2 g/dL (2-4); Potassium 4.4 mmol/L (3.5-5.0); Total Bilirubin 0.4 mg/dL (0.2-1.0); Total Protein 8.9 g/dL (6.4-8.9)
[2018-10-07] MEDS ORDERED: cefTRIAXone(*) 1 GM in NS 0.9% 50 ML* 50 ML IVPB ONE (19:26)
[2018-10-07 19:50] LABS: Urine Appearance Turbid; Urine Bacteria 2+ (Absent); Urine Bilirubin Negative (Negative); Urine Blood 1+ (Negative); Urine Color Amber; Urine Glucose Negative (Negative); Urine Ketones Trace (Negative); Urine Nitrite Negative (Negative); Urine Protein 1+(30 mg/dL) (Negative); Urine Red Blood Cell 3+(>10/hpf) (Absent); Urine Specific Gravity 1.019 (1.010-1.030); Urine Urobilinogen Negative (Negative); Urine White Blood Cell 3+(>20/hpf) (Absent)
[2018-10-07] MEDS ORDERED: Lactated Ringers 1000 ML Bag* 1,000 ML IV SCH ×2 (20:18→21:00)
[2018-10-07] MEDS ORDERED: Ondansetron INJ* 2 MG/ML VIAL IV PRN (20:18)
[2018-10-07] MEDS ORDERED: Melatonin 3 MG TAB PO PRN (20:21)
[2018-10-07] MEDS ORDERED: Acetaminophen TAB* 325 MG PO PRN (20:21)
[2018-10-07] MEDS ORDERED: OLANzapine TAB* 2.5 MG PO SCH (21:00)
--- NOTE | 2018-10-07 22:26 | HP ---
CC: [facility] * HISTORY AND PHYSICAL: DATE OF ADMISSION: 10/07/18 TIME OF EVALUATION: 1999. PRIMARY CARE PHYSICIAN: [facility]. CHIEF COMPLAINT: Altered mental status. HISTORY OF PRESENT ILLNESS: This is an 88-year-old female with a past medical history of moderate dementia, who recently had a fall on the , and came to EMS, and was worked up in the ER, it was unremarkable workup, and has had a generalized decline since then with more somnolence, decrease in p.o., today was significantly worse. They checked a UA and gave her a dose of IM ceftriaxone. They were still concerned about her being minimally responsive and recommend she go to the emergency room for further evaluation. In the emergency room, the patient was somnolent, dehydrated, hypernatremic, and findings consistent of a urinary tract infection. In the emergency room, she got a liter of normal saline and 1 g of ceftriaxone, referred to the hospitalist service for further evaluation. Of note, the patient is nonverbal, unable to obtain a review of systems; history was obtained by the ER staff, the son, and the records. PAST MEDICAL HISTORY: 1. Constipation. 2. Insomnia. 3. Dysphagia, on a pureed diet. 4. Depression. 5. Hypertension. 6. Hyperlipidemia. 7. Dementia, assessed as moderate. 8. GERD. 9. Glaucoma. 10. Stage II coccyx wound. MEDICATIONS: 1. TwoCal supplement p.o. daily. 2. Melatonin 3 mg daily in the evening. 3. Sennosides-docusate 2 tabs daily in the a.m. 4. Aspirin 81 mg p.o. daily. 5. Zyprexa 2.5 mg p.o. b.i.d. 6. Verapamil 80 mg p.o. b.i.d. 7. Artificial Tears bilateral b.i.d. 8. Tylenol 650 every 6 hours as needed and as mentioned ceftriaxone 1 g started on today, 10/07/18. 9. Sertraline 25 mg p.o. daily. ALLERGIES: No known drug allergies. FAMILY HISTORY: Unable to obtain. SOCIAL HISTORY: The patient resides at [facility]. Her power of document review attorney, healthcare proxy is her son, Carlo Sánchez, phone number is [phone]. MOLST form has been completed, confirmed she remains a DNR/DNI with limited medical interventions. She at baseline ambulates independently. She is minimally verbally interactive. She does recognize her son, but has been declining the past few months, and on pureed food diet. REVIEW OF SYSTEMS: Unable to obtain due to the patient's somnolence. PHYSICAL EXAMINATION GENERAL: In no acute distress, sleeping with a blanket over her head, does resist me moving the blanket away from her, but is not opening her eyes or interactive with no meaningful interaction. VITAL SIGNS: Temp 98.8, pulse rate is 89, respiratory rate is 18, oxygen saturation is 98% on room air, blood pressure 151/95. HEENT: Head: Normocephalic. Pupils unable to assess; the patient resisting me opening them. Oropharynx: Lips are dry, again unable to open her oropharynx to assess. NECK: Supple. No lymphadenopathy. RESPIRATORY: Diminished breath sounds. No wheezing, rhonchi or rales. CARDIAC: Regular rate and rhythm. Soft systolic murmur heard throughout. ABDOMEN: Soft, nontender, nondistended. EXTREMITIES: No clubbing, cyanosis, or edema. +1 DPs. NEUROLOGIC: The patient is nonverbal, somnolent, but she is moving her upper extremities, trying to keep the blanket over her face. No spontaneous lower extremity movement. Nonverbal. DERM: The patient with skin tears on her lower extremities and dry flaking skin , could not assess her coccyx wound. DIAGNOSTIC STUDIES/LAB DATA: White count 8.7, hemoglobin 12, hematocrit 37, platelets 581. INR is 1.01. Sodium 152, potassium 4.4, chloride 115, bicarb 26 , BUN 45, creatinine 1.01, glucose 91, lactic acid 2.2, calcium 11.5. Alk phos is 129, albumin is 3.7. UA shows trace ketones, +1 blood, +3 leuks, +3 whites, +3 reds, +2 bacteria. ASSESSMENT AND PLAN: This is an 88-year-old female with past medical history of dementia, who presents to the emergency room with increase in altered mental status, somnolence, not able to take p.o., found to be dehydrated with urinary tract infection. 1. Altered mental status. The patient's findings are consistent with dehydration secondary to a urinary tract infection in the setting of moderate dementia. I discussed with the son regarding the plan that will be to rehydrate her, bring her sodium down, and to continue her on ceftriaxone, and follow up on her cultures in hopes that she will become more alert and mentating enough to start her back on a pureed diet and then back on her p.o. medications. He understands that she has been declining with her dementia and that hope that she will be able to go back to [facility] and we would have more information over the next 1 to 2 days once she has been treated. 2. Acute kidney injury. Mild bump in her BUN and creatinine, most likely prerenal azotemia. Continue IV fluids. We will give her another second liter of fluid and start her on LR. 3. Hypernatremia. As mentioned, this is secondary to dehydration. She is now getting a second liter of LR. We will start her on LR and repeat a BMP at midnight and again in the morning. 4. Chronic medical problems. The patient is not able to take p.o. at this time. Recommend swallow evaluation in the morning, bedside swallow evaluation, and resume a pureed diet when she is more alert and awake, and start her on medications at that time. I am going to change her Zyprexa to just in the evenings, as this is sedating and this may be contributing to her somnolence. 5. FEN. NPO in the setting of her altered mental status, IV fluids. 6. DVT prophylaxis. The patient scores high risk. Placed her on heparin subcu t.i.d. 7. Code status. The patient is a DNR/DNI. PATIENT TIME: Greater than 45 minutes spent doing the history and physical, more than half the time spent in direct patient contact. [id number]/[facility] #: [id number] LESVIA
[2018-10-07] MEDS: OLANzapine TAB* 2.5 MG PO SCH (23:16)
[2018-10-07] MEDS: Verapamil TAB* 80 MG PO SCH (23:17)
[2018-10-08] MEDS: Heparin VIAL(*) 5000 UNITS/ML VIAL (FIVE THOUSAND) SUBCUT SCH ×4 (01:02→20:41)
[2018-10-08] MEDS: Artificial Tear OPHTH.OINT* 3.5 GM BOTH EYES SCH ×3 (01:02→20:41)
[2018-10-08 02:28] LABS: BUN/Creatinine Ratio 42.6 (8-20); Calcium 11.1 mg/dL (8.6-10.3); EGFR African American 67.8 (>60); EGFR Non-African American 56.1 (>60); Potassium 4.2 mmol/L (3.5-5.0)
[2018-10-08] MEDS ORDERED: D5W 1/2 NS 1000 ML BAG* 1,000 ML IV SCH (03:00)
[2018-10-08 05:54] LABS: ABS Basophils 0.1 10^3/ul (0-0.2); ABS Eosinophils 0.2 10^3/ul (0-0.6); ABS Lymphocytes 1.2 10^3/ul (1.0-4.8); ABS Monocytes 1.1 10^3/ul (0-0.8); ABS Neutrophils 5.8 10^3/ul (1.5-7.7); Eosinophil % 2.6 %; Hematocrit 34 % (35-47); Hemoglobin 11.1 g/dL (12.0-16.0); Lymphocyte % 14.7 %; Mean Corpuscular HGB Conc 33 g/dL (31-36); Mean Corpuscular Hemoglobin 31 pg (27-31); Mean Corpuscular Volume 95 fL (80-97); Mean Platelet Volume 7.6 fL (7.4-10.4); Platelet Count 535 10^3/uL (150-450); Red Cell Distribution Width 15 % (10.5-15); White Blood Count 8.5 10^3/uL (3.5-10.8)
--- NOTE | 2018-10-08 06:08 | ED ---
Progress - Results/Orders Results/Orders: CT Brain: 1. No acute intracranial findings, but the study is significantly limited by patient motion. 2. Age-related atrophy and chronic white matter ischemic change. ED physician has reviewed this report. Course/Dx - Course Course Of Treatment: Patient is an 88 y/o F presenting with AMS. Per daughter in law: patient evaluated at [facility] on 10/02 after fall. Patient has not been eating or drinking for the past 4 days. Patient also has recent dx: UTI. Upon physical exam, the patient is not responding to questions; GCS of 15. In the ED course, the patient was administered Ns and Ceftriaxone. Blood work reveals plt count of 51, abs monos of 1.0, sodium of 152, chloride of 115, BUN of 45, creatinine of 1.01, BUN/creatinine ratio of 44.6, lactic acid of 2.2, calcium of 11.5, alkaline phosphatase of 129, globulin of 5.2, albumin/globulin ratio of 0.7 but otherwise no acute abnormalities. EKG reveals sinus tachycardia at [address] is negative for acute changes. She is diagnosed with hypernatremia, UTI, and dehydration. At 1940, I discussed the patients case with Dr. Dye, hospitalist, and she accepts the patient for admission at this time. The patient agrees with this plan and understands the need for admission at this time. - Diagnoses Provider Diagnoses: Hypernatremia, UTI (urinary tract infection), Dehydration - Provider Notifications Time Discussed With Above Provider: 19:40 Instructed by Provider To: Other - I discussed the patients case with Dr. Dye , and she accepts the patient at this time. Discharge - Sign-Out/Discharge Documenting (check all that apply): Patient Departure - Patient is accepted for admission by Dr. Dye. Patient Received Moderate/Deep Sedation with Procedure: No - Discharge Plan Condition: Guarded Disposition: ADMITTED TO [facility] - Billing Disposition and Condition Condition: GUARDED Disposition: Admitted to [facility] - Attestation Statements Document Initiated by Scribe: Yes Documenting Scribe: Sindi Cooper Provider For Whom Scribe is Documenting (Include Credential): Dr. Duarte Ayala MD Scribe Attestation: Sindi Almeida scribed for Dr. Duarte Ayala MD on 10/09/18 at 0521. Scribe Documentation Reviewed: Yes Provider Attestation: The documentation as recorded by the Sindi acosta accurately reflects the service I personally performed and the decisions made by me, Dr. Duarte Ayala MD Status of Kristi Document: Viewed
[2018-10-08 06:14] LABS: BUN/Creatinine Ratio 42.2 (8-20); Calcium 10.9 mg/dL (8.6-10.3); EGFR African American 78.3 (>60); EGFR Non-African American 64.7 (>60); Potassium 3.9 mmol/L (3.5-5.0)
[2018-10-08] MEDS: Sertraline* 25 MG TAB PO SCH (07:26)
[2018-10-08] MEDS: Senna TAB PO SCH (07:26)
[2018-10-08] MEDS: OLANzapine TAB* 2.5 MG PO SCH (07:26)
[2018-10-08] MEDS: Verapamil TAB* 80 MG PO SCH ×2 (07:26→20:42)
[2018-10-08] MEDS: Docusate CAP* 100 MG PO SCH (07:26)
[2018-10-08] MEDS: Aspirin EC TAB* 81 MG TAB.EC PO SCH (07:26)
[2018-10-08] MEDS ORDERED: [UNRECOGNIZED DRUG - OTHER] PO SCH (08:30)
[2018-10-08] MEDS ORDERED: LACTOSE REDUCED FOOD PO SCH (08:30)
[2018-10-08] MEDS: D5W 1000 ML BAG* 1,000 ML IV SCH (10:20)
--- NOTE | 2018-10-08 11:44 | PN ---
Subjective Date of Service: 10/08/18 Interval History: HOSPITALIST PROGRESS NOTE Patient seen and examined at bedside. Care reviewed and d/w Shayy Alston RN. She opens eyes when called, but doesn't answer questions or follows commands. Family History: Unchanged from Admission Social History: Unchanged from Admission Past Medical History: Unchanged from Admission Objective Active Medications: Acetaminophen (Tylenol Tab*) 650 mg PO Q6H PRN PRN Reason: FEVER/PAIN Artificial Tears (Lacrilube Oint*) 1 applic BOTH EYES BID [facility] Last Admin: 10/08/18 07:46 Dose: Not Given Aspirin (Aspirin Ec Tab*) 81 mg PO QAM [facility] Last Admin: 10/08/18 07:26 Dose: Not Given Docusate Sodium (Colace Cap*) 100 mg PO QAM [facility] Last Admin: 10/08/18 07:26 Dose: Not Given Heparin Sodium (Porcine) (Heparin Vial(*)) 5,000 units SUBCUT Q8HR [facility] Last Admin: 10/08/18 05:36 Dose: 5,000 units Ceftriaxone Sodium 1 gm/ (Sodium Chloride) 50 mls @ 200 mls/hr IVPB Q24H [facility] Dextrose (D5w 1000 Ml Bag*) 1,000 mls @ 100 mls/hr IV PER RATE [facility] Last Admin: 10/08/18 10:20 Dose: 100 mls/hr Melatonin (Melatonin) 3 mg PO DAILY PRN PRN Reason: SLEEP Olanzapine (Zyprexa Tab*) 2.5 mg PO DAILY [facility] Last Admin: 10/08/18 07:26 Dose: Not Given Ondansetron HCl (Zofran Inj*) 4 mg IV Q4H PRN PRN Reason: NAUSEA/VOMITING Senna ([facility]okot Tab*) [facility] Last Admin: 10/08/18 07:26 Dose: Not Given Sertraline HCl (Zoloft*) 25 mg PO DAILY [facility] Last Admin: 10/08/18 07:26 Dose: Not Given Verapamil HCl (Calan Tab*) 80 mg PO BID [facility] Last Admin: 10/08/18 07:26 Dose: Not Given Vital Signs - 8 hr 10/08/18 10/08/18 10/08/18 04:01 07:51 08:39 Temperature 98.7 F 101.2 F Pulse Rate 102 114 Respiratory 18 16 20 Rate Blood Pressure 124/62 115/66 (mmHg) O2 Sat by Pulse 95 86 Oximetry 10/08/18 11:00 Temperature 98.4 F Pulse Rate Respiratory Rate Blood Pressure (mmHg) O2 Sat by Pulse 100 Oximetry Oxygen Devices in Use Now: Nasal Cannula - 4 liters Appearance: Elderly lady lying in bed in NAD. Eyes: No Scleral Icterus Ears/Nose/Mouth/Throat: Mucous Membranes Moist Neck: Trachea Midline Respiratory: Symmetrical Chest Expansion and Respiratory Effort, Clear to Auscultation Cardiovascular: RRR - Normal S1 and S2, +SM Abdominal: NL Sounds; No Tenderness; No Distention Neurological: - - Lethargic, opens eyes when called, but doesn't answer question Result Diagrams: 10/08/18 05:33 10/08/18 05:33 Assess/Plan/Problems-Billing Assessment: Mrs Sánchez is an 88yo F with PMH of moderate dementia, HTN, HLD, GERD, glaucoma, stage II sacral pressure ulcer, glaucoma, depression, dysphagia, who presented to ED with altered MS, found to have UTI and dehydration. - Patient Problems (1) Encephalopathy Comment: - Metabolic encephalopathy secondary to UTI and dehydration with severe hypernatremia. (2) UTI (urinary tract infection) Comment: - Present on admission. - Urine culture from 10/02 grew Enterococcus >100k colonies, sensitive to penicillin. - Continue Ceftriaxone for now, follow current urine culture. (3) Dehydration Comment: - With severe hypernatremia. - Will change IVF to D5W and continue to monitor. (4) Hypercalcemia Comment: - Likely secondary to dehydration - trending down. - Continue IVF. (5) ZAINAB (acute kidney injury) Comment: - Secondary to dehydration - resolved. (6) Pressure injury of coccygeal region, stage 2 Comment: - Present on admission. - Continue care measures. (7) DVT prophylaxis Comment: - SQ heparin. (8) DNR (do not resuscitate) Status and Disposition: Inpatient.
[2018-10-08 13:00] LABS: Calcium 10.6 mg/dL (8.6-10.3); Potassium 3.9 mmol/L (3.5-5.0)
[2018-10-08 13:06] LABS: BUN/Creatinine Ratio 34.8 (8-20); EGFR African American 72.3 (>60); EGFR Non-African American 59.7 (>60)
--- NOTE | 2018-10-08 16:40 | CONSULT ---
Subjective Date of Service: 10/08/18 Interval History: Ms. Sánchez is an 88 yo female with PMH significant for dysphagia, insomnia, depression, HTN, HLD, dementia, GERD, galucoma, stage 2 pressure injury to the coccyx, who presented to the emergency room for generalized decline and concern for increased somnolence. Presented to the hospital with known skin breakdown to her buttocks. Patient seen and examined at bedside. Family History: Unchanged from Admission Social History: Unchanged from Admission Past Medical History: Unchanged from Admission Review of Systems - Measurements Intake and Output: Intake and Output Last 24 Hours 10/06/18 10/07/18 10/08/18 10/09/18 06:59 06:59 06:59 06:59 Intake Total 3555 306 Output Total 300 Balance 3555 6 Weight 141 lb Intake: IV Fluids 3555 306 D5W 1/2 NS 222 306 NS (0.9%) 2333 Oral 0 Output: Short 300 - Review of Systems General Comments: Patient is nonverbal, unable to perform ROS. Objective Active Medications: Acetaminophen (Tylenol Tab*) 650 mg PO Q6H PRN Reason: FEVER/PAIN Artificial Tears (Lacrilube Oint*) 1 applic BOTH EYES BID [facility] Aspirin (Aspirin Ec Tab*) 81 mg PO QAM [facility] Docusate Sodium (Colace Cap*) 100 mg PO QAM [facility] Heparin Sodium (Porcine) (Heparin Vial(*)) 5,000 units SUBCUT Q8HR [facility] Ceftriaxone Sodium 1 gm/ (Sodium Chloride) 50 mls @ 200 mls/hr IVPB Q24H [facility] Dextrose (D5w 1000 Ml Bag*) 1,000 mls @ 100 mls/hr IV PER RATE [facility] Melatonin (Melatonin) 3 mg PO DAILY PRN Reason: SLEEP Ondansetron HCl (Zofran Inj*) 4 mg IV Q4H PRN Reason: NAUSEA/VOMITING Senna (Senokot Tab*) 2 tab PO QAM [facility] Sertraline HCl (Zoloft*) 25 mg PO DAILY [facility] Verapamil HCl (Calan Tab*) 80 mg PO BID [facility] Vital Signs 10/08/18 10/08/18 11:36 16:06 Temperature 98.2 F 98.7 F Pulse Rate 95 123 Respiratory 16 16 Rate Blood Pressure 154/70 141/71 (mmHg) O2 Sat by Pulse 100 90 Oximetry Oxygen Devices in Use Now: None Appearance: NAD, laying in bed Ears/Nose/Mouth/Throat: Mucous Membranes Moist Respiratory: Symmetrical Chest Expansion and Respiratory Effort Extremities: No Edema Skin: - - see skin note below Neurological: - - Lethargic, responds to voice but doesn't answer questions Nutrition: Taking PO's Result Diagrams: 10/10/18 09:47 10/11/18 13:58 Microbiology and Other Data: Microbiology 10/07/18 22:50 Nasal Screen MRSA (PCR) - Final Nasal Mrsa Not Detected Skin Deviation Note - Skin Deviation Findings Buttocks - Superficial open area, measures 4 cm x 3.5 cm 0.1 cm. The wound pase is pink granulation tissue The surrounding skin is intact. Small amount of serous drainage noted on the dressing. Bilateral lower extremities - [place] skin discoloration, no open areas, the skin is intact. Assessment/Plan: 1. Sacral pressure injury, stage 2. This was present on admission, healing. Suspect that there may also be a component of a shearing injury and fiction based on the placement of the skin breakdown. Recommend applying barrier cream to the area. If an Optifoam dressing is used as a barrier, ensure that the dressing isn't soiled with stool, if unable to keep dressing from being soiled do not use a dressing in this area. She should have frequent turning and repositioning. Recommend checking a prealbumin level. 2. Bilateral LEs with skin discoloration. This skin is intact and not open. The "crown ironer" areas appear to be scaring from previous skin issues. 3. Diet. NPO, swallow eval pending. 4. Code Status. DNR/DNI 5. Disposition. Inpatient, disposition per primary medicine team. TIME SPENT: Time for this wound consultation was 30 minutes and 20 minutes was spent assessing the skin, measuring and photographing the wounds. Wound Problem/Plan Is Patient a Wound Clinic Patient: No Attending: Karie Heredia
[2018-10-08] MEDS ORDERED: Dextrose 50% Syringe 50 ML* 25 GM/50 ML SYRINGE IV PUSH PRN (17:34)
[2018-10-08] MEDS ORDERED: Dextrose 50% Syringe 50 ML* 25 GM/50 ML SYRINGE ONE (17:35)
[2018-10-08] MEDS ORDERED: cefTRIAXone(*) 1 GM in NS 0.9% 50 ML* 50 ML IVPB SCH (20:00)
[2018-10-09] MEDS: D5W 1000 ML BAG* 1,000 ML IV SCH (00:28)
[2018-10-09] MEDS: Ampicillin ADVAN(*) 2 GM in NS 0.9% 100 ML* 100 ML IVPB SCH ×4 (00:33→18:10)
[2018-10-09] MEDS: Heparin VIAL(*) 5000 UNITS/ML VIAL (FIVE THOUSAND) SUBCUT SCH ×3 (05:54→21:46)
[2018-10-09 07:02] LABS: ABS Basophils 0.1 10^3/ul (0-0.2); ABS Eosinophils 0.3 10^3/ul (0-0.6); ABS Lymphocytes 1.5 10^3/ul (1.0-4.8); ABS Monocytes 0.9 10^3/ul (0-0.8); ABS Neutrophils 5.4 10^3/ul (1.5-7.7); Eosinophil % 3.2 %; Hematocrit 32 % (35-47); Hemoglobin 10.4 g/dL (12.0-16.0); Lymphocyte % 18.5 %; Mean Corpuscular HGB Conc 32 g/dL (31-36); Mean Corpuscular Hemoglobin 31 pg (27-31); Mean Corpuscular Volume 95 fL (80-97); Mean Platelet Volume 7.9 fL (7.4-10.4); Nucleated Red Blood Cells % 0.1; Platelet Count 455 10^3/uL (150-450); Red Blood Count 3.39 10^6 /uL (3.70-4.87); Red Cell Distribution Width 15 % (10.5-15); White Blood Count 8.1 10^3/uL (3.5-10.8)
[2018-10-09 07:17] LABS: Calcium 10.2 mg/dL (8.6-10.3); EGFR Non-African American 72.8 (>60); Potassium 3.4 mmol/L (3.5-5.0)
[2018-10-09] MEDS: Verapamil TAB* 80 MG PO SCH ×2 (08:23→08:30)
[2018-10-09] MEDS: Docusate CAP* 100 MG PO SCH ×2 (08:23→08:31)
[2018-10-09] MEDS: Aspirin EC TAB* 81 MG TAB.EC PO SCH ×2 (08:23→08:31)
[2018-10-09] MEDS: Senna TAB PO SCH ×2 (08:23→08:31)
[2018-10-09] MEDS: Sertraline* 25 MG TAB PO SCH ×2 (08:23→08:31)
[2018-10-09] MEDS: Artificial Tear OPHTH.OINT* 3.5 GM BOTH EYES SCH ×2 (08:30→21:46)
[2018-10-09] MEDS: KCL 10 MEQ/50 ML IVPREMIX* 10 MEQ/50 ML BAG IV SCH ×3 (09:30→16:59)
[2018-10-09] MEDS ORDERED: Melatonin 3 MG TAB PO PRN (13:21)
[2018-10-09] MEDS ORDERED: Acetaminophen ADULT LIQ* 650 MG/20.3 ML UDC NG TUBE PRN (13:21)
--- NOTE | 2018-10-09 14:46 | PN ---
Subjective Date of Service: 10/09/18 Interval History: HOSPITALIST PROGRESS NOTE Patient seen and examined at bedside. Care reviewed and d/w Kayy Blancas RN. She's a little more awake today, follows simple commands, but goes back to sleep. Family History: Unchanged from Admission Social History: Unchanged from Admission Past Medical History: Unchanged from Admission Objective Active Medications: Acetaminophen (Tylenol Adult Liq*) 650 mg NG TUBE Q6H PRN PRN Reason: FEVER/PAIN Artificial Tears (Lacrilube Oint*) 1 applic BOTH EYES BID [facility] Last Admin: 10/09/18 08:30 Dose: Not Given Aspirin (Aspirin 81 Mg Chew Tab*) 81 mg NG TUBE QAM [facility] Dextrose (D50w Syringe 50 Ml*) 12.5 gm IV PUSH .FOR FS < 60 - SS PRN PRN Reason: FS < 60 Last Admin: 10/08/18 17:50 Dose: 12.5 gm Docusate Sodium (Colace Liq*) 100 mg G TUBE QAM [facility] Heparin Sodium (Porcine) (Heparin Vial(*)) 5,000 units SUBCUT Q8HR [facility] Last Admin: 10/09/18 14:17 Dose: 5,000 units Ampicillin Sodium 2 gm/ Sodium (Chloride) 100 mls @ 200 mls/hr IVPB Q6H [facility] Last Admin: 10/09/18 14:06 Dose: 200 mls/hr Dextrose/Sodium Chloride (D5w 1/2 Ns 1000 Ml Bag*) 1,000 mls @ 75 mls/hr IV PER RATE [facility] Melatonin (Melatonin) 3 mg PO DAILY PRN PRN Reason: SLEEP Ondansetron HCl (Zofran Inj*) 4 mg IV Q4H PRN PRN Reason: NAUSEA/VOMITING Senna (Senokot Tab*) 2 tab NG TUBE QAM [facility] Sertraline HCl (Zoloft*) 25 mg NG TUBE DAILY [facility] Verapamil HCl (Calan Tab*) 80 mg NG TUBE BID [facility] Vital Signs - 8 hr 10/09/18 10/09/18 08:12 08:59 Temperature 97.8 F Pulse Rate 89 Respiratory 16 16 Rate Blood Pressure 125/56 (mmHg) O2 Sat by Pulse 100 Oximetry Oxygen Devices in Use Now: None Appearance: Elderly lady lying in bed in NAD. Pulls blankets over her head when I try to examine her. Eyes: No Scleral Icterus Ears/Nose/Mouth/Throat: Mucous Membranes Moist Neck: Trachea Midline Respiratory: Symmetrical Chest Expansion and Respiratory Effort, Clear to Auscultation Cardiovascular: RRR - Normal S1 and S2, +SM Abdominal: NL Sounds; No Tenderness; No Distention Neurological: - - Lethargic, but arousable to voice. Moves all 4 extremities Result Diagrams: 10/09/18 05:53 10/09/18 05:53 Assess/Plan/Problems-Billing Assessment: Mrs Sánchez is an 88yo F with PMH of moderate dementia, HTN, HLD, GERD, glaucoma, stage II sacral pressure ulcer, glaucoma, depression, dysphagia, who presented to ED with altered MS, found to have UTI and dehydration. - Patient Problems (1) Encephalopathy Comment: - Metabolic encephalopathy secondary to UTI and dehydration with severe hypernatremia. - Improving slowly - a little more awake today. - CT brain was negative. - No focal deficits on exam. (2) UTI (urinary tract infection) Comment: - Present on admission. - Urine culture from 10/02 grew Enterococcus >100k colonies, sensitive to penicillin. Repeat Ucx shows the same. Changed to Ampicillin. - Renal US showed no hydronephrosis, incidental finding of cholelithiasis. (3) Severe protein-calorie malnutrition Comment: - As evidenced by prealbumin of 7 and pressure ulcer. - Her PO intake has been 0 since admission. I called her son (Caitlin [phone]) and DIL (Sherrie [phone]) - they're in agreement with NGT placement for nutrition and medication. (4) Dehydration Comment: - With severe hypernatremia - much improved. - Change IVF back to D51/2 NS and continue to monitor. (5) Systolic murmur Comment: - F/u echo. (6) Hypercalcemia Comment: - Likely secondary to dehydration - resolved. (7) ZAINAB (acute kidney injury) Comment: - Secondary to dehydration - resolved. (8) Pressure injury of coccygeal region, stage 2 Comment: - Present on admission. - Wound care consult appreciated. (9) DVT prophylaxis Comment: - SQ heparin. (10) DNR (do not resuscitate) Status and Disposition: Inpatient.
--- NOTE | 2018-10-09 15:16 | ECHO ---
*[facility]* [place] [address] Fax #: [phone] Transthoracic Echocardiogram Patient: Princess, Height: 67 in / 170.2 Lacy elmore : 1930 Weight: 140.7 lb / 64 Study Date: 10/09/2018 kg Age: 88 BP: 130 / 77 Gender: F BMI/BSA: 22.1 kg/m^2 / HR: 86 bpm 1.74 m^2 *Power Washer: * Rebecca Avila RDCS RN *Referring Physician: * Juana WilkinsonReading Physician: * Lissy Nathan MD Indications: Murmur. History: Dementia. Risk factors: Hypertension. Dyslipidemia. Conclusions Summary: 1. Procedure narrative: The study was technically limited due to poor acoustic windows and restricted patient mobility, see below text. 2. Left ventricle: Systolic function is at the lower limits of normal. The estimated ejection fraction is 50-55%. Posterior wall appears hypokinetic on the long axis view, not seen in short axis and no 2 or 3 chamber views to compare. 3. Tricuspid valve: There is trace to mild regurgitation. 4. No prior echocardiogram to compare. Recommendations: Consider transesophageal echocardiogram if clinically indicated for complete evaluation of ventricle and valves. Study data: Transthoracic echocardiogram. Procedure: Transthoracic echocardiography was performed. The study was technically limited due to poor acoustic windows and restricted patient mobility. Images were obtained from limited parasternal and subcostal windows. No apical window was found. The Doppler exam was limited. The patient had difficulty maintaining position and was unable to follow directions. Complete 2D, spectral Doppler, and color flow Doppler. Patient status: Inpatient. Patient room number: 401. Rhythm: Normal sinus rhythm. Findings Left ventricle: The cavity size is mildly reduced. Wall thickness is moderately increased. Systolic function is at the lower limits of normal. The estimated ejection fraction is 50-55%. Regional wall motion abnormalities cannot be excluded. Posterior wall appears hypokinetic on the long axis view, not seen in short axis and no 2 or 3 chamber views to compare. Left ventricular diastolic function was unable to be assessed. Right ventricle: The cavity size is normal. Systolic function is normal. Left atrium: The atrium is normal in size. Right atrium: Not well visualized. Mitral valve: Not well visualized. The leaflets are mildly thickened. There is no significant regurgitation. Aortic valve: The valve is trileaflet. The leaflets are mildly calcified. There is no evidence of stenosis by 2D imaging. There is no significant regurgitation. Tricuspid valve: The leaflets are normal thickness. There is trace to mild regurgitation. Pulmonic valve: The valve is structurally normal. There is no evidence of stenosis. There is trace to mild regurgitation. Aorta: Aortic root: The aortic root is not dilated. Ascending aorta: The ascending aorta is not visualized. Aortic arch: The aortic arch is not visualized as the patient would not allow imaging from the suprasternal notch. Pericardium: There is no pericardial effusion. Pulmonary arteries: The main pulmonary artery is normal-sized. Systemic veins: Inferior vena cava: The vessel is normal in size. The respirophasic diameter changes are in the normal range (>= 50%). Measurements Left ventricle Value Ref Pulmonic valve Value Ref BALTAZAR, LAX (L) 3.5 cm 3.8 - 5.2 Peak v, S 0.89 m/sec ---- ESD, LAX 2.7 cm 2.2 - 3.5 Peak grad, S 3.0 mm Hg ---- FS, LAX (L) 23 % 27 - 45 PW, ED, LAX (H) 1.3 cm 0.6 - 0.9 Aortic root Value Ref IVS/PW, ED 0.94 --------- Root diam 2.7 cm <3.9 Ventricular septum Value Ref Inferior vena cava Value Ref IVS, ED (H) 1.3 cm 0.6 - 0.9 Diam 1.0 cm ---- Aortic valve Value Ref Felicia diam, ED 2.0 cm --------- Legend: (L) and (H) kal values outside specified reference range. Prepared and electronically signed by Lissy Nathan MD 10/09/2018 15:16
[2018-10-09] MEDS: D5W 1/2 NS 1000 ML BAG* 1,000 ML IV SCH (19:21)
[2018-10-09] MEDS: Verapamil TAB* 80 MG NG TUBE SCH (20:14)
[2018-10-10] MEDS: Ampicillin ADVAN(*) 2 GM in NS 0.9% 100 ML* 100 ML IVPB SCH ×4 (00:10→18:21)
[2018-10-10] MEDS: Heparin VIAL(*) 5000 UNITS/ML VIAL (FIVE THOUSAND) SUBCUT SCH ×3 (05:39→22:44)
[2018-10-10] MEDS: Docusate LIQ* 100 MG/10 ML UDC G TUBE SCH (07:56)
[2018-10-10] MEDS: Aspirin 81 mg CHEW TAB* 81 MG TAB.CHEW NG TUBE SCH (07:56)
[2018-10-10] MEDS: Sertraline* 25 MG TAB NG TUBE SCH (07:57)
[2018-10-10] MEDS: Artificial Tear OPHTH.OINT* 3.5 GM BOTH EYES SCH ×2 (07:57→22:45)
[2018-10-10] MEDS: Senna TAB NG TUBE SCH (07:57)
[2018-10-10] MEDS: Verapamil TAB* 80 MG NG TUBE SCH ×2 (07:57→22:44)
[2018-10-10] MEDS: D5W 1/2 NS 1000 ML BAG* 1,000 ML IV SCH (09:31)
[2018-10-10 10:21] LABS: ABS Basophils 0.1 10^3/ul (0-0.2); ABS Eosinophils 0.2 10^3/ul (0-0.6); ABS Lymphocytes 1.7 10^3/ul (1.0-4.8); ABS Monocytes 0.8 10^3/ul (0-0.8); ABS Neutrophils 5.2 10^3/ul (1.5-7.7); Eosinophil % 2.6 %; Hematocrit 30 % (35-47); Hemoglobin 9.9 g/dL (12.0-16.0); Lymphocyte % 21.9 %; Mean Corpuscular HGB Conc 33 g/dL (31-36); Mean Corpuscular Hemoglobin 31 pg (27-31); Mean Corpuscular Volume 95 fL (80-97); Mean Platelet Volume 7.8 fL (7.4-10.4); Platelet Count 429 10^3/uL (150-450); Red Cell Distribution Width 15 % (10-15)
[2018-10-10 10:23] LABS: Calcium 10.1 mg/dL (8.6-10.3); Potassium 3.7 mmol/L (3.5-5.0)
[2018-10-10 10:29] LABS: BUN/Creatinine Ratio 16.7 (8-20); EGFR African American 71.3 (>60)
--- NOTE | 2018-10-10 12:42 | PN ---
Subjective Date of Service: 10/10/18 Interval History: Pt is nonverbal during my eval, able to follow simple commands, but not consistently. Evaluated swallowing by RN: able to drinks thin liquids and pureed food Family History: Unchanged from Admission Social History: Unchanged from Admission Past Medical History: Unchanged from Admission Objective Active Medications: Acetaminophen (Tylenol Adult Liq*) 650 mg NG TUBE Q6H PRN PRN Reason: FEVER/PAIN Artificial Tears (Lacrilube Oint*) 1 applic BOTH EYES BID [facility] Last Admin: 10/10/18 07:57 Dose: 1 applic Aspirin (Aspirin 81 Mg Chew Tab*) 81 mg NG TUBE QAM [facility] Last Admin: 10/10/18 07:56 Dose: Not Given Dextrose (D50w Syringe 50 Ml*) 12.5 gm IV PUSH .FOR FS < 60 - SS PRN PRN Reason: FS < 60 Last Admin: 10/08/18 17:50 Dose: 12.5 gm Docusate Sodium (Colace Liq*) 100 mg G TUBE QAM [facility] Last Admin: 10/10/18 07:56 Dose: Not Given Heparin Sodium (Porcine) (Heparin Vial(*)) 5,000 units SUBCUT Q8HR [facility] Last Admin: 10/10/18 05:39 Dose: 5,000 units Ampicillin Sodium 2 gm/ Sodium (Chloride) 100 mls @ 200 mls/hr IVPB Q6H [facility] Last Admin: 10/10/18 12:16 Dose: 200 mls/hr Dextrose/Sodium Chloride (D5w 1/2 Ns 1000 Ml Bag*) 1,000 mls @ 75 mls/hr IV PER RATE [facility] Last Admin: 10/10/18 09:31 Dose: 75 mls/hr Lactulose (Lactulose*) 30 ml NG TUBE TID [facility] Last Admin: 10/10/18 07:56 Dose: Not Given Melatonin (Melatonin) 3 mg PO DAILY PRN PRN Reason: SLEEP Ondansetron HCl (Zofran Inj*) 4 mg IV Q4H PRN PRN Reason: NAUSEA/VOMITING Senna (Senokot Tab*) 2 tab NG TUBE QAM [facility] Last Admin: 10/10/18 07:57 Dose: Not Given Sertraline HCl (Zoloft*) 25 mg NG TUBE DAILY [facility] Last Admin: 10/10/18 07:57 Dose: Not Given Verapamil HCl (Calan Tab*) 80 mg NG TUBE BID [facility] Last Admin: 10/10/18 07:57 Dose: Not Given Vital Signs - 8 hr 10/10/18 10/10/18 07:51 08:00 Pulse Rate 85 Respiratory 16 19 Rate Blood Pressure 148/66 (mmHg) O2 Sat by Pulse 100 Oximetry Oxygen Devices in Use Now: None Appearance: 88 yo F, lying in bed, nonverbal, awake follows simple commands Eyes: - - cornea hazy b/l , pupils mildly reactive to light Ears/Nose/Mouth/Throat: NL Teeth, Lips, Gums, Mucous Membranes Moist Neck: NL Appearance and Movements; NL JVP Respiratory: Symmetrical Chest Expansion and Respiratory Effort, Clear to Auscultation Cardiovascular: NL Sounds; No Murmurs; No JVD, - - 2/s BRUCE Abdominal: NL Sounds; No Tenderness; No Distention, No Hepatosplenomegaly Lymphatic: No Cervical Adenopathy Extremities: No Clubbing, Cyanosis, - - trace left ankle edema Skin: - - stage 2 sacral ulcer on L-at 3 cm in lenght Neurological: - - appears to have a contraction in left elbow, nonverbal, difficult to eval due to problems with following commands - Nutrition: Malnutrition Diagnosis/Plan Malnutrition Assessment by Registered Dietitian: Malnutrition Assessment Clinical Characteristics Acute,Severe Malnutrition Assessment: - < 50% estimated energy expenditure > 5 days Criteria - Mild to moderate temporal muscle wasting Malnutrition Assessment: Plan for NGT feedings as able. See nutrition Interventions assessment for recommendations. Malnutrition Assessment: Goals 1. NGT placement will be successful vs. encephalopathy will improve to allow PO diet advancement in the next 24-48 hours 2. Ultimately, adequate nutrition to maintain lean body mass and hydration w/o undesired wt loss 3. Nutrition will promote wound healing w/o additional pressure related skin breakdown [ End ] Result Diagrams: 10/10/18 09:47 10/10/18 09:47 Microbiology and Other Data: Microbiology 10/07/18 22:50 Nasal Screen MRSA (PCR) - Final Nasal Mrsa Not Detected Assess/Plan/Problems-Billing Assessment: Mrs Sánchez is an 88yo F with PMH of moderate dementia, HTN, HLD, GERD, glaucoma, stage II sacral pressure ulcer, glaucoma, depression, dysphagia, who presented to ED with altered MS, found to have UTI and dehydration. - Patient Problems (1) UTI (urinary tract infection) Comment: - Present on admission. - Urine culture from 10/02 grew Enterococcus >100k colonies, sensitive to penicillin. Repeat Ucx shows the same. Changed to Ampicillin. - Renal US showed no hydronephrosis, incidental finding of cholelithiasis. (2) Encephalopathy Comment: - Metabolic encephalopathy secondary to UTI and dehydration with severe hypernatremia. - Improving slowly - a little more awake today. - CT brain was negative. - No focal deficits on exam, ? contraction of left arm?chronicity? (3) ZAINAB (acute kidney injury) Comment: - Secondary to dehydration - resolved. (4) Dehydration Comment: - With severe hypernatremia - much improved. - cont D51/2 NS and continue to monitor. (5) Hypercalcemia Comment: - Likely secondary to dehydration - resolved. (6) Pressure injury of coccygeal region, stage 2 Comment: - Present on admission. - Wound care consult appreciated. (7) Severe protein-calorie malnutrition Comment: - As evidenced by prealbumin of 7 and pressure ulcer. - Her PO intake has been 0 since admission, but today pt was able to eat puree diet. will cont to mnonitor and call son (Caitlin [phone]) and DIL (Sherrie [phone]) if needed. NG trial of placement failed 10/09/18 (8) Systolic murmur Comment: -no specific abn noted on Echo (9) DVT prophylaxis Comment: - SQ heparin. Status and Disposition: Inpatient.
[2018-10-11] MEDS: Ampicillin ADVAN(*) 2 GM in NS 0.9% 100 ML* 100 ML IVPB SCH ×4 (00:06→17:42)
[2018-10-11] MEDS: D5W 1/2 NS 1000 ML BAG* 1,000 ML IV SCH (00:24)
[2018-10-11] MEDS: Heparin VIAL(*) 5000 UNITS/ML VIAL (FIVE THOUSAND) SUBCUT SCH ×3 (05:50→22:02)
--- NOTE | 2018-10-11 10:06 | PN ---
Subjective Date of Service: 10/11/18 Interval History: Pt appeared to be pocketing food today as per d/w RN and swallow eval is ordered again. Still nonverbal during the eval although apparently was able to talk with RN's . Pt occasionally laughs inappropriately . Family History: Unchanged from Admission Social History: Unchanged from Admission Past Medical History: Unchanged from Admission Objective Active Medications: Acetaminophen (Tylenol Adult Liq*) 650 mg NG TUBE Q6H PRN PRN Reason: FEVER/PAIN Artificial Tears (Lacrilube Oint*) 1 applic BOTH EYES BID [facility] Last Admin: 10/10/18 22:45 Dose: 1 applic Aspirin (Aspirin 81 Mg Chew Tab*) 81 mg NG TUBE QAM [facility] Last Admin: 10/10/18 07:56 Dose: Not Given Dextrose (D50w Syringe 50 Ml*) 12.5 gm IV PUSH .FOR FS < 60 - SS PRN PRN Reason: FS < 60 Last Admin: 10/08/18 17:50 Dose: 12.5 gm Docusate Sodium (Colace Liq*) 100 mg G TUBE QAM [facility] Last Admin: 10/10/18 07:56 Dose: Not Given Heparin Sodium (Porcine) (Heparin Vial(*)) 5,000 units SUBCUT Q8HR [facility] Last Admin: 10/11/18 05:50 Dose: 5,000 units Ampicillin Sodium 2 gm/ Sodium (Chloride) 100 mls @ 200 mls/hr IVPB Q6H [facility] Last Admin: 10/11/18 05:50 Dose: 200 mls/hr Dextrose/Sodium Chloride (D5w 1/2 Ns 1000 Ml Bag*) 1,000 mls @ 75 mls/hr IV PER RATE [facility] Last Admin: 10/11/18 00:24 Dose: Not Given Melatonin (Melatonin) 3 mg PO DAILY PRN PRN Reason: SLEEP Ondansetron HCl (Zofran Inj*) 4 mg IV Q4H PRN PRN Reason: NAUSEA/VOMITING Senna (Senokot Tab*) 2 tab NG TUBE QAM [facility] Last Admin: 10/10/18 07:57 Dose: Not Given Sertraline HCl (Zoloft*) 25 mg NG TUBE DAILY [facility] Last Admin: 10/10/18 07:57 Dose: Not Given Verapamil HCl (Calan Tab*) 80 mg NG TUBE BID [facility] Last Admin: 10/10/18 22:44 Dose: 80 mg Vital Signs - 8 hr 10/11/18 10/11/18 10/11/18 02:56 03:48 07:28 Temperature 98.0 F 97.7 F Pulse Rate 86 80 Respiratory 16 16 16 Rate Blood Pressure 125/60 132/69 (mmHg) O2 Sat by Pulse 99 100 Oximetry Oxygen Devices in Use Now: None Appearance: 88 yo F in nAD, nonverbal, awake, unable to follow commands Eyes: No Scleral Icterus, PERRLA, - - cloudy corneas b/l Ears/Nose/Mouth/Throat: NL Teeth, Lips, Gums Neck: NL Appearance and Movements; NL JVP Respiratory: Symmetrical Chest Expansion and Respiratory Effort, Clear to Auscultation Cardiovascular: NL Sounds; No Murmurs; No JVD, RRR Abdominal: NL Sounds; No Tenderness; No Distention Lymphatic: No Cervical Adenopathy Extremities: No Clubbing, Cyanosis, - - trace pedal edema b/l Skin: No Nodules or Sclerosis, - - sacral decub not inspected today Neurological: - - ? contracted left elbow, nonverbal during evbal, awake, not following commands - Nutrition: Malnutrition Diagnosis/Plan Malnutrition Assessment by Registered Dietitian: Malnutrition Assessment Clinical Characteristics Acute,Severe Malnutrition Assessment: - < 50% estimated energy expenditure > 5 days Criteria - Mild to moderate temporal muscle wasting Malnutrition Assessment: Plan for NGT feedings as able. See nutrition Interventions assessment for recommendations. Malnutrition Assessment: Goals 1. NGT placement will be successful vs. encephalopathy will improve to allow PO diet advancement in the next 24-48 hours 2. Ultimately, adequate nutrition to maintain lean body mass and hydration w/o undesired wt loss 3. Nutrition will promote wound healing w/o additional pressure related skin breakdown [ End ] Result Diagrams: 10/10/18 09:47 10/10/18 09:47 Microbiology and Other Data: Microbiology 10/07/18 22:50 Nasal Screen MRSA (PCR) - Final Nasal Mrsa Not Detected Assess/Plan/Problems-Billing Assessment: Mrs Sánchez is an 88yo F with PMH of moderate dementia, HTN, HLD, GERD, glaucoma, stage II sacral pressure ulcer, glaucoma, depression, dysphagia, who presented to ED with altered MS, found to have UTI and dehydration. - Patient Problems (1) UTI (urinary tract infection) Comment: - Present on admission. - Urine culture from 10/02 grew Enterococcus >100k colonies, sensitive to penicillin. Repeat Ucx shows the same. Changed to Ampicillin. - Renal US showed no hydronephrosis, incidental finding of cholelithiasis. (2) Encephalopathy Comment: - Metabolic encephalopathy secondary to UTI and dehydration with severe hypernatremia. - Improving- awake today. - CT brain was negative. - No focal deficits on exam, ? contraction of left arm?chronicity? (3) ZAINAB (acute kidney injury) Comment: - Secondary to dehydration - resolved. (4) Dehydration Comment: - With severe hypernatremia - much improved. - cont D51/2 NS and continue to monitor. (5) Hypercalcemia Comment: - Likely secondary to dehydration - resolved. (6) Pressure injury of coccygeal region, stage 2 Comment: - Present on admission. - Wound care consult appreciated. (7) Severe protein-calorie malnutrition Comment: - As evidenced by prealbumin of 7 and pressure ulcer. - Her PO intake has been 0 since admission, but today pt was able to eat puree diet. will cont to monitor and call son (Caitlin [phone]) and DIL (Sherrie [phone]) if needed. NG trial of placement failed 10/09/18 (8) Systolic murmur Comment: -no specific abn noted on Echo (9) DVT prophylaxis Comment: - SQ heparin. (10) Dysphagia Comment: suspect due to severe dementia swallow eval pending Status and Disposition: Inpatient.
[2018-10-11] MEDS: Artificial Tear OPHTH.OINT* 3.5 GM BOTH EYES SCH ×2 (10:31→19:23)
[2018-10-11] MEDS: Aspirin 81 mg CHEW TAB* 81 MG TAB.CHEW NG TUBE SCH (10:37)
[2018-10-11] MEDS: Docusate LIQ* 100 MG/10 ML UDC G TUBE SCH (10:37)
[2018-10-11] MEDS: Verapamil TAB* 80 MG NG TUBE SCH ×2 (10:37→22:01)
[2018-10-11] MEDS: Sertraline* 25 MG TAB NG TUBE SCH (10:37)
[2018-10-11] MEDS: Senna TAB NG TUBE SCH (10:37)
[2018-10-11 16:27] LABS: BUN/Creatinine Ratio 11.8 (8-20); Calcium 9.4 mg/dL (8.6-10.3); EGFR African American 98.6 (>60); EGFR Non-African American 81.5 (>60); Potassium 3.4 mmol/L (3.5-5.0)
[2018-10-11] MEDS: KCL 20 MEQ/100 ML IVPREMIX* 20 MEQ/100 ML BAG IV SCH ×2 (19:23→22:00)
[2018-10-12] MEDS: Ampicillin ADVAN(*) 2 GM in NS 0.9% 100 ML* 100 ML IVPB SCH ×2 (00:19→06:07)
[2018-10-12] MEDS: Heparin VIAL(*) 5000 UNITS/ML VIAL (FIVE THOUSAND) SUBCUT SCH (06:07)
[2018-10-12 07:20] VITALS: BP 176/64
[2018-10-12] MEDS ORDERED: Verapamil TAB* 80 MG PO SCH (09:00)
[2018-10-12] MEDS: Sertraline* 25 MG TAB NG TUBE SCH (09:10)
[2018-10-12] MEDS: Aspirin 81 mg CHEW TAB* 81 MG TAB.CHEW NG TUBE SCH (09:10)
[2018-10-12] MEDS: Artificial Tear OPHTH.OINT* 3.5 GM BOTH EYES SCH (09:15)
[2018-10-12] MEDS: Docusate LIQ* 100 MG/10 ML UDC G TUBE SCH (09:19)
[2018-10-12] MEDS: Senna TAB NG TUBE SCH (09:19)
--- NOTE | 2018-10-12 13:13 | DS ---
CC: [facility] DISCHARGE SUMMARY: DATE OF ADMISSION: 10/07/18 DATE OF DISCHARGE AND TRANSFER BACK TO [facility]: 10/12/18 PRIMARY CARE PROVIDER: Provider from [facility]. DISPOSITION AT DISCHARGE: To [facility]. CONDITION AT DISCHARGE: Stable. DISCHARGE DIAGNOSES: 1. Encephalopathy and marked lethargy due to marked dehydration resulting in hypernatremia and hypercalcemia that resolved. 2. Enterococcus faecalis urinary tract infection. 3. Advanced dementia with resultant dysphagia. The patient is on pureed, solids, and thin liquid diet with poor p.o. intake. NG tube placement was attempted several times during the hospital stay and that was unsuccessful. SECONDARY DIAGNOSES: 1. History of dysphagia in the past. 2. History of dementia. 3. Sacral stage II decubitus chronic. 4. Depression. 5. Hypertension. 6. Hyperlipidemia. 7. History of constipation. MEDICATIONS AT DISCHARGE: Include: 1. Acetaminophen 650 mg every 6 hours p.r.n. 2. Aspirin 81 mg daily. 3. Ensure liquid 90 mL as needed p.r.n. 4. Melatonin 3 mg at night. 5. Mineral oil ophthalmic to bilateral eyes as needed for dry eyes. 6. Senna 2 tablets q.a.m. 7. Zoloft 25 mg daily. 8. Verapamil 80 mg b.i.d. 9. Augmentin 500 mg b.i.d. for total of 3 days, then stop. LABORATORY DATA AND STUDIES: Laboratory data and studies performed during the hospital stay included: On 10/11/18, sodium 141, potassium 3.4, chloride 112, carbon dioxide 23, BUN 8, creatinine 0.68. CBC on 10/10/18, show white blood cell count of 8.0, hemoglobin 9.9, hematocrit 30, and platelets 429. Transesophageal echocardiogram obtained on 10/08/18, showed EF of 55% to 60% with posterior wall that appears hypokinetic with trace mitral regurgitation. Otherwise, the study was technically limited. Renal ultrasound obtained on 10/08/18, impression: "The bladder was collapsed around Short catheter. The ureteral jets are not visualized. " Brain CTA obtained on admission, impression: "No accurate intracranial findings , but the study is significantly limited by the patient's motion, age-related atrophy, and chronic white matter ischemic changes." The patient's prealbumin level was 7. CONSULTATIONS DURING HOSPITAL STAY: Includes wound care consult obtained on 08/23, that recommended applying barrier cream to the area and frequent repositioning. HOSPITALIZATION COURSE: Ms. Lacy Sánchez is an 88-year-old female with history of dementia, who was brought in from retirement on 10/07/18 with marked lethargy. A Short catheter was inserted in the emergency department and the patient was noted to have urine cultures positive for Enterococcus faecalis UTI. It was treated with amoxicillin IV for the duration of the patient's hospital stay. The patient is to continue Augmentin for another 3 days to complete her treatment. The patient was also markedly hypernatremic and hypercalcemic with mildly increased creatinine. Those all resolved after intravenous fluids. The patient was noted to be very lethargic and initially an NG tube attempt was performed 3 times at the family request at the beginning of the patient's hospital stay. Unfortunately, it was unsuccessful. It was recommended that if the patient needed an NG tube in the future, she probably will need to be placed in the OR by Gastroenterology. At that point, within the next 24 hours, the patient was awake have to be able to do well with swallow eval and start p.o. diet. The patient had 2 swallow evaluations , both of the times, it was noted the patient is okay with pureed diet and thin liquids. The patient also was noted to pocket food when she is not interested in eating. The patient's overall status and severe dementia was discussed with the patient' s son Caitlin Sánchez, who is aware the patient's dementia and dysphagia is likely terminal and it will continue to progress despite that the patient has a fair p.o. intake at discharge. It was recommended for the patient to be referred to hospitalist at admission back to [facility] [place] today. Unfortunately, we did not have a rn case manager hospice during the patient's hospital stay this week. In regards to the patient's sacral pressure ulcer that is chronic, the patient is recommended to have frequent repositioning and barrier cream to be applied. Short catheter that was inserted at admission will be discontinued prior to the patient's discharge. Diet at discharge recommended is pureed and thin liquids. PHYSICAL EXAMINATION AT TIME OF DISCHARGE: Blood pressure 176/64, please note that this was obtained before the patient's verapamil dose, heart rate of 85 and regular, respiratory rate 16, oxygen saturation 99% on room air, temperature 97.2. General: The patient is an 88-year-old female who is lying in bed, basically nonverbal, occasionally she laughs inappropriately during the evaluation. She is unable to follow commands. HEENT: Head, atraumatic, normocephalic. Eyes, pupils are equal and reactive to light with cornea that is cloudy bilaterally. Oropharynx clear. Mucosa moist. Neck: Supple. No JVD. No bruits bilaterally. Cardiovascular: Regular rate and rhythm. No murmur. Respiratory: Clear to auscultation bilaterally. Abdomen: Soft, nontender. Bowel sounds present in all 4 quadrants. Extremities: There is no edema. Pulses are +2 bilaterally. No clubbing or cyanosis. On evaluation of the skin, the patient has scaring of distal bilateral lower extremities with no evidence of acute injury. She has chronic sacral decubitus wounds of approximately 3 x 4 cm, stage II with no acute infection. Neurologically, the patient is not able to participate. She is nonverbal. She appears to have mild contraction at the elbow on the left, but was difficult to be evaluated though the patient is not cooperating with evaluation. DISPOSITION AT DISCHARGE: To [facility]. CONDITION AT DISCHARGE: Stable, but the patient will likely be declining in her overall clinical condition and a hospice placement is recommended. Please note that this is a short summary of the patient's hospital stay. Please refer to further medical records for details. TIME SPENT: Approximately 45 minutes was spent in preparation of the patient's discharge. [id number]/[facility] #: [id number] LESVIA
== END 2018-10-12 13:50 | DRG 640 ==
LOC: ED 17:50 → MED 20:18
PROVIDERS: ADMIT Pediatrics; ATTEND Internal Medicine
DX: E86.0 Dehydration (principal); G93.41 Metabolic encephalopathy; E43 Unspecified severe protein-calorie malnutrition; N39.0 Urinary tract infection, site not specified; N17.9 Acute kidney failure, unspecified; E87.0 Hyperosmolality and hypernatremia; E83.52 Hypercalcemia; B95.2 Enterococcus as the cause of diseases classified elsewhere; F03.90 Unspecified dementia, unspecified severity, without behavioral disturbance, psychotic disturbance, mood disturbance, and anxiety; R13.10 Dysphagia, unspecified; L89.152 Pressure ulcer of sacral region, stage 2; F32.9 Major depressive disorder, single episode, unspecified; I10 Essential (primary) hypertension; E78.5 Hyperlipidemia, unspecified; Z66 Do not resuscitate; K59.00 Constipation, unspecified; G47.00 Insomnia, unspecified; K21.9 Gastro-esophageal reflux disease without esophagitis; H40.9 Unspecified glaucoma; R01.1 Cardiac murmur, unspecified; Z79.1 Long term (current) use of non-steroidal anti-inflammatories (NSAID); Z79.82 Long term (current) use of aspirin; Z79.899 Other long term (current) drug therapy; Z68.22 Body mass index [BMI] 22.0-22.9, adult
CPT/HCPCS: 36415; 70450; 76775; 80048; 80053; 81003; 81015; 82140; 83605; 84134; 84484; 85025; 87077; 87086; 87186; 87641; 93005; 93306; 99285; A9270-GY; J0696; J1644; J3480